=== PATIENT | male | born 1955 | race Caucasian/White ===

== ENCOUNTER 2020-07-23 08:55 | Observation (INO) | payer MEDICARE ==
[2020-07-23 09:31] LABS: #Eosinphils 0.2 10x3/uL (0.0-0.5); #Monocytes 0.6 10x3/uL (0.0-1.1); #Neutrophils 4.1 10x3/uL (1.5-8.4); %Basophils 0.6 % (0.0-2.0); %Eosinophils 3.5 % (0.0-6.0); %Lymphocytes 21.4 % (18.0-47.0); %Monocytes 9.3 % (0.0-10.0); %Neutrophils 64.9 % (40.0-75.0); Hemoglobin 12.1 g/dL (13.5-17.5); Mean Corpuscular HGB CONC 32.4 g/dL (32.0-36.0); Mean Corpuscular Hemoglobin 23.5 pg (27.0-33.0); Mean Corpuscular Volume 72.6 fl (81.2-95.1); Platelet Count 212 10x3/uL (150-450); RBC Distribution Width 15.3 % (11.5-14.5); Red Blood Cell (RBC) Count 5.15 10x6/uL (4.32-5.72); White Blood Cell (WBC) Count 6.3 10x3/uL (3.5-10.5)
[2020-07-23 09:48] LABS: ALT (SGPT) 24 U/L (8-55); AST (SGOT) 22 U/L (5-34); Albumin 3.9 g/dL (3.4-4.8); Alkaline Phosphatase 57 U/L (40-110); Anion Gap 16 mmol/L (10-20); BUN (Urea Nitrogen) 33 mg/dL (8.4-25.7); Bilirubin, Total 0.5 mg/dL (0.2-1.2); Calc. Creatinine Clearance 0 mL/min (70-130); Calcium 9.1 mg/dL (7.8-10.44); Carbon Dioxide 22 mmol/L (23-31); Chloride 101 mmol/L (98-107); Globulin 2.6 g/dL (2.4-3.5); Glucose 147 mg/dL (80-115); Potassium 3.8 mmol/L (3.5-5.1); Protein, Total 6.5 g/dL (5.8-8.1); Sodium 135 mmol/L (136-145)
[2020-07-23] MEDS ORDERED: Aspirin Chewable 81 MG TAB ONE (09:52)
[2020-07-23] MEDS ORDERED: Bisacodyl 10 MG SUPP PR PRN (10:21)
[2020-07-23] MEDS ORDERED: Guaifenesin DM 100-10/5 ML UDCUP PO PRN (10:21)
[2020-07-23] MEDS ORDERED: Dextrose 50% Abboject 50 ML SYRINGE SLOW IVP PRN (10:21)
[2020-07-23] MEDS ORDERED: Calcium Carbonate 500 MG ChewTAB PO PRN (10:21)
[2020-07-23] MEDS ORDERED: hydrALAZINE 20 MG/ML VIAL SLOW IVP PRN (10:21)
[2020-07-23] MEDS ORDERED: Sodium Chloride 0.65% Nasal 44 ML BOT EA NARE PRN (10:21)
[2020-07-23] MEDS ORDERED: Ondansetron ODT 4 MG TAB PO PRN (10:21)
[2020-07-23] MEDS ORDERED: HYDROcodone/Acetaminophen 5/325 mg Tablet PO PRN (10:21)
[2020-07-23] MEDS ORDERED: Senokot S 8.6-50 MG TAB PO PRN (10:21)
[2020-07-23] MEDS ORDERED: Dextrose 5% in Water 1,000 ML IV PRN (10:21)
[2020-07-23] MEDS ORDERED: Ondansetron PF 4 MG/2 ML Vial IVP PRN (10:21)
[2020-07-23] MEDS ORDERED: Loratadine 10 MG TAB PO PRN (10:21)
[2020-07-23] MEDS ORDERED: Cepastat Lozenges 1 LOZ PO PRN (10:21)
[2020-07-23] MEDS ORDERED: Loperamide HCl 2 MG CAP PO PRN (10:21)
[2020-07-23] MEDS ORDERED: Zolpidem Tartrate 5 MG TAB PO PRN (10:21)
[2020-07-23] MEDS ORDERED: Nitroglycerin 0.4 MG TAB (25 Tab Bottle) SL PRN (10:21)
[2020-07-23] MEDS ORDERED: Acetaminophen 325 MG TAB PO PRN (10:21)
[2020-07-23] MEDS ORDERED: HumaLOG 300 UNITS/3 ML VIAL SC PRN ×2 (10:25)
[2020-07-23 11:27] VITALS: BMI 39.0
[2020-07-23] MEDS ORDERED: Hydrocerin (Eucerin) Cream 120 gm Jar TOP PRN (11:29)
[2020-07-23 12:36] LABS: Troponin I 0.017 ng/mL (< 0.028)
[2020-07-23 15:49] LABS: Troponin I 0.018 ng/mL (< 0.028)
[2020-07-23] MEDS ORDERED: Lorazepam 0.5 MG TAB PO PRN (17:31)
[2020-07-23] MEDS ORDERED: HumaLOG 300 UNITS/3 ML VIAL SC SCH (18:00)
[2020-07-23] MEDS: TICAGRELOR 90 MG TABLET PO SCH (20:40)
[2020-07-23] MEDS: Carvedilol 25 MG TAB PO SCH (20:40)
[2020-07-23] MEDS: DULoxetine 30 MG CAP PO SCH (20:40)
[2020-07-23] MEDS ORDERED: Ubidecarenone 50 MG CAP PO SCH (21:00)
[2020-07-23] MEDS ORDERED: Aripiprazole 10 MG TAB PO SCH (21:00)
[2020-07-23] MEDS ORDERED: Atorvastatin Calcium 40 MG TAB PO SCH (21:00)
[2020-07-24 05:47] LABS: Anion Gap 15 mmol/L (10-20); BUN (Urea Nitrogen) 37 mg/dL (8.4-25.7); Calc. Creatinine Clearance 81 mL/min (70-130); Calcium 8.8 mg/dL (7.8-10.44); Carbon Dioxide 21 mmol/L (23-31); Cardiac Risk 3.9 (Less than 4.5); Chloride 103 mmol/L (98-107); Cholesterol 122 mg/dl (< 200 Desired); Glucose 243 mg/dL (80-115); HDL Cholesterol 31 mg/dL (>60 Neg Risk); LDL Cholesterol, Calculated 64 mg/dL; Potassium 3.8 mmol/L (3.5-5.1); Sodium 135 mmol/L (136-145); Triglycerides 134 mg/dL (Less than 150)
[2020-07-24 05:50] LABS: #Eosinphils 0.2 10x3/uL (0.0-0.5); #Monocytes 0.7 10x3/uL (0.0-1.1); #Neutrophils 4.4 10x3/uL (1.5-8.4); %Basophils 0.6 % (0.0-2.0); %Eosinophils 2.9 % (0.0-6.0); %Lymphocytes 21.4 % (18.0-47.0); %Monocytes 10.6 % (0.0-10.0); %Neutrophils 64.2 % (40.0-75.0); Hemoglobin 11.2 g/dL (13.5-17.5); Mean Corpuscular HGB CONC 31.8 g/dL (32.0-36.0); Mean Corpuscular Hemoglobin 23.8 pg (27.0-33.0); Mean Corpuscular Volume 74.7 fl (81.2-95.1); Mean Platelet Volume 10.3 fl (7.4-10.4); Platelet Count 208 10x3/uL (150-450); RBC Distribution Width 15.2 % (11.5-14.5); Red Blood Cell (RBC) Count 4.71 10x6/uL (4.32-5.72); White Blood Cell (WBC) Count 6.9 10x3/uL (3.5-10.5)
[2020-07-24] MEDS: TICAGRELOR 90 MG TABLET PO SCH (07:52)
[2020-07-24] MEDS: DULoxetine 30 MG CAP PO SCH (07:52)
[2020-07-24] MEDS: Carvedilol 25 MG TAB PO SCH (07:52)
[2020-07-24] MEDS ORDERED: Calcium Carbonate 600 MG TAB PO SCH (08:00)
[2020-07-24 08:58] LABS: Hemoglobin A1c 8.3 % (4.0-6.0)
[2020-07-24] MEDS ORDERED: Ascorbic Acid 500 mg Chewable Tablet PO SCH (09:00)
[2020-07-24] MEDS ORDERED: Empagliflozin 25 MG TAB PO SCH (09:00)
[2020-07-24] MEDS ORDERED: Aspirin Chewable 81 MG TAB PO SCH (09:00)
[2020-07-24] MEDS ORDERED: Fenofibrate Nanocrystallized 145 MG TAB PO SCH (09:00)
[2020-07-24] MEDS ORDERED: Enoxaparin Sodium 40 MG/0.4 ML SYRINGE SC SCH (09:00)
[2020-07-24] MEDS ORDERED: Cholecalciferol (Vitamin D3) 400 UNITS TAB PO SCH (10:15)
[2020-07-24] MEDS ORDERED: Ferrous Sulfate 325 MG TAB PO SCH (10:30)
[2020-07-24 16:38] VITALS: BP 139/74; TEMP 97.1
[2020-07-24 20:53] LABS: SARS-CoV-2 PCR by NAA Not Detected (NotDetected)
[2020-07-25] MEDS ORDERED: Ferrous Sulfate 325 MG TAB PO SCH (08:00)
[2020-07-25] MEDS ORDERED: Cholecalciferol (Vitamin D3) 400 UNITS TAB PO SCH (09:00)
== END 2020-07-24 17:29 | disposition home or self-care (01) ==
LOC: CSHERS 08:55 → CSHTELE 11:07
PROVIDERS: ADMIT Internal Medicine; ATTEND Internal Medicine
DX: R07.9 Chest pain, unspecified (principal); R55 Syncope and collapse; F41.9 Anxiety disorder, unspecified; F32.9 Major depressive disorder, single episode, unspecified; E11.22 Type 2 diabetes mellitus with diabetic chronic kidney disease; I12.9 Hypertensive chronic kidney disease with stage 1 through stage 4 chronic kidney disease, or unspecified chronic kidney disease; N18.31 Chronic kidney disease, stage 3a; E78.5 Hyperlipidemia, unspecified; G47.33 Obstructive sleep apnea (adult) (pediatric); K21.9 Gastro-esophageal reflux disease without esophagitis; E66.9 Obesity, unspecified; Z79.899 Other long term (current) drug therapy; Z79.82 Long term (current) use of aspirin; Z79.4 Long term (current) use of insulin; Z95.5 Presence of coronary angioplasty implant and graft; Z98.84 Bariatric surgery status; Z86.16 Personal history of COVID-19; Z20.822 Contact with and (suspected) exposure to COVID-19
CPT/HCPCS: 71045; 80048; 80053; 80061; 82962 ×2; 83036; 84484 ×2; 85025 ×2; 93005; 94760 ×2; 99285; U0003; U0005; 36415; 36416; 87635; 96372; G0378; J1650

== ENCOUNTER 2021-09-03 08:57 | Observation (INO) | payer MEDICARE ==
[2021-09-03] MEDS ORDERED: Aspirin Chewable 81 MG TAB ONE (09:25)
[2021-09-03 10:07] LABS: #Basophils 0.1 10x3/uL (0.0-0.2); #Eosinphils 0.3 10x3/uL (0.0-0.5); #Monocytes 0.5 10x3/uL (0.0-1.1); #Neutrophils 4.1 10x3/uL (1.5-8.4); %Basophils 1.1 % (0.0-2.0); %Eosinophils 4.7 % (0.0-6.0); %Lymphocytes 24.8 % (18.0-47.0); %Monocytes 7.8 % (0.0-10.0); %Neutrophils 61.3 % (40.0-75.0); Mean Corpuscular HGB CONC 32.3 g/dL (32.0-36.0); Mean Corpuscular Volume 71.3 fl (81.2-95.1); Platelet Count 241 10x3/uL (150-450); RBC Distribution Width 15.9 % (11.5-14.5); Red Blood Cell (RBC) Count 4.78 10x6/uL (4.32-5.72); White Blood Cell (WBC) Count 6.7 10x3/uL (3.5-10.5)
[2021-09-03 10:29] LABS: ALT (SGPT) 20 U/L (8-55); AST (SGOT) 20 U/L (5-34); Albumin 3.6 g/dL (3.4-4.8); Alkaline Phosphatase 44 U/L (40-110); Anion Gap 16 mmol/L (10-20); BUN (Urea Nitrogen) 36 mg/dL (8.4-25.7); Bilirubin, Total 0.4 mg/dL (0.2-1.2); CK (CPK) 136 U/L (30-200); Calc. Creatinine Clearance 0 mL/min (70-130); Calcium 8.9 mg/dL (7.8-10.44); Carbon Dioxide 25 mmol/L (23-31); Chloride 102 mmol/L (98-107); Globulin 2.4 g/dL (2.4-3.5); Glucose 110 mg/dL (80-115); Lipase 62 U/L (8-78); Potassium 3.9 mmol/L (3.5-5.1); Sodium 139 mmol/L (136-145)
[2021-09-03 12:06] VITALS: BMI 39.0
[2021-09-03] MEDS ORDERED: Acetaminophen 325 MG TAB PO PRN (12:06)
[2021-09-03 12:38] LABS: Troponin I 0.016 ng/mL (< 0.028)
[2021-09-03] MEDS ORDERED: HumaLOG 300 UNITS/3 ML VIAL SC PRN ×2 (12:59→20:45)
[2021-09-03] MEDS ORDERED: Dextrose 5% in Water 1,000 ML IV PRN (12:59)
[2021-09-03] MEDS ORDERED: Dextrose 50% Abboject 50 ML SYRINGE SLOW IVP PRN (12:59)
[2021-09-03 15:50] LABS: Troponin I 0.014 ng/mL (< 0.028)
[2021-09-03] MEDS ORDERED: TADALAFIL 20 MG PO PRN (20:36)
[2021-09-03] MEDS ORDERED: Atorvastatin Calcium 40 MG TAB PO SCH (21:00)
[2021-09-03] MEDS ORDERED: Ubidecarenone 50 MG CAP PO SCH (21:00)
[2021-09-03] MEDS ORDERED: Aripiprazole 10 MG TAB PO SCH (21:00)
[2021-09-03] MEDS ORDERED: Terazosin HCl 5 MG CAP PO SCH (21:00)
[2021-09-03] MEDS ORDERED: Melatonin 3 MG TAB PO PRN (21:03)
[2021-09-03] MEDS: DULoxetine 30 MG CAP PO SCH (21:31)
[2021-09-03] MEDS: TICAGRELOR 90 MG TABLET PO SCH (21:32)
[2021-09-03] MEDS: Vit A,C & E/Lutein/Minerals Tablet PO SCH (21:36)
[2021-09-04 05:45] LABS: #Basophils 0.1 10x3/uL (0.0-0.2); #Eosinphils 0.4 10x3/uL (0.0-0.5); #Monocytes 0.6 10x3/uL (0.0-1.1); #Neutrophils 3.8 10x3/uL (1.5-8.4); %Basophils 1.1 % (0.0-2.0); %Eosinophils 4.8 % (0.0-6.0); %Lymphocytes 33.7 % (18.0-47.0); %Monocytes 8.6 % (0.0-10.0); %Neutrophils 51.7 % (40.0-75.0); Hemoglobin 11.3 g/dL (13.5-17.5); Mean Corpuscular HGB CONC 31.3 g/dL (32.0-36.0); Mean Corpuscular Hemoglobin 22.3 pg (27.0-33.0); Mean Corpuscular Volume 71.3 fl (81.2-95.1); Mean Platelet Volume 9.8 fl (7.4-10.4); Platelet Count 263 10x3/uL (150-450); RBC Distribution Width 16.2 % (11.5-14.5); Red Blood Cell (RBC) Count 5.06 10x6/uL (4.32-5.72); White Blood Cell (WBC) Count 7.3 10x3/uL (3.5-10.5)
[2021-09-04 06:02] LABS: Anion Gap 12 mmol/L (10-20); BUN (Urea Nitrogen) 32 mg/dL (8.4-25.7); Calc. Creatinine Clearance 79 mL/min (70-130); Calcium 8.8 mg/dL (7.8-10.44); Carbon Dioxide 28 mmol/L (23-31); Cardiac Risk 3.7 (Less than 4.5); Chloride 103 mmol/L (98-107); Cholesterol 146 mg/dl (< 200 Desired); HDL Cholesterol 40 mg/dL (>60 Neg Risk); LDL Cholesterol, Calculated 92 mg/dL; Potassium 3.4 mmol/L (3.5-5.1); Sodium 140 mmol/L (136-145); Triglycerides 70 mg/dL (Less than 150)
[2021-09-04 06:07] LABS: Glucose 57 mg/dL (80-115)
[2021-09-04] MEDS ORDERED: Carvedilol 25 MG TAB PO SCH (08:00)
[2021-09-04] MEDS ORDERED: metFORMIN 500 MG TAB PO SCH (08:00)
[2021-09-04] MEDS: DULoxetine 30 MG CAP PO SCH (08:14)
[2021-09-04] MEDS: TICAGRELOR 90 MG TABLET PO SCH (08:16)
[2021-09-04] MEDS: Vit A,C & E/Lutein/Minerals Tablet PO SCH (08:16)
[2021-09-04] MEDS ORDERED: Aspirin 81 mg Enteric Coated Tablet PO SCH (09:00)
[2021-09-04] MEDS ORDERED: Aspirin Chewable 81 MG TAB PO SCH (09:00)
[2021-09-04] MEDS ORDERED: Fenofibrate Nanocrystallized 145 MG TAB PO SCH (09:00)
[2021-09-04] MEDS ORDERED: Ascorbic Acid 500 mg Chewable Tablet PO SCH (09:00)
[2021-09-04] MEDS ORDERED: Amlodipine 10 MG TAB PO SCH (09:00)
[2021-09-04] MEDS ORDERED: Empagliflozin 25 MG TAB PO SCH (09:00)
[2021-09-04] MEDS ORDERED: Hydrochlorothiazide 25 MG TAB PO SCH (09:00)
[2021-09-04] MEDS ORDERED: Losartan Potassium 50 MG TAB PO SCH (09:00)
[2021-09-04 11:07] LABS: Magnesium 2.1 mg/dL (1.6-2.6)
[2021-09-04 12:05] VITALS: BP 144/89; TEMP 97.2
[2021-09-04] MEDS: Potassium Chloride 20 MEQ TAB PO SCH ×2 (12:06→12:45)
[2021-09-04] MEDS ORDERED: Potassium Chloride 20 MEQ TAB PO SCH (13:00)
[2021-09-04 17:03] LABS: Hemoglobin A1c 7.2 % (4.0-6.0)
[2021-09-04] MEDS ORDERED: Flecainide 50 MG TAB PO SCH (21:00)
[2021-09-04] MEDS ORDERED: Atorvastatin Calcium 40 MG TAB PO SCH (21:00)
[2021-09-05] MEDS ORDERED: Clopidogrel Bisulfate 75 MG TAB PO SCH (09:00)
[2021-09-07] MEDS ORDERED: Ergocalciferol 1.25 MG(50,000 UNITS) CAP PO SCH (21:00)
== END 2021-09-04 16:30 | disposition home or self-care (01) ==
LOC: CSHERS 08:57 → CSHTELE 11:44 → INTOOBSV 11:55
PROVIDERS: ADMIT Hospitalist; ATTEND Hospitalist
DX: R07.89 Other chest pain (principal); I25.118 Atherosclerotic heart disease of native coronary artery with other forms of angina pectoris; E11.65 Type 2 diabetes mellitus with hyperglycemia; I12.9 Hypertensive chronic kidney disease with stage 1 through stage 4 chronic kidney disease, or unspecified chronic kidney disease; E11.22 Type 2 diabetes mellitus with diabetic chronic kidney disease; N18.9 Chronic kidney disease, unspecified; K21.9 Gastro-esophageal reflux disease without esophagitis; G47.33 Obstructive sleep apnea (adult) (pediatric); E78.2 Mixed hyperlipidemia; N40.0 Benign prostatic hyperplasia without lower urinary tract symptoms; I07.1 Rheumatic tricuspid insufficiency; Z86.16 Personal history of COVID-19; Z79.4 Long term (current) use of insulin; Z79.82 Long term (current) use of aspirin; Z79.84 Long term (current) use of oral hypoglycemic drugs; Z79.899 Other long term (current) drug therapy; Z88.2 Allergy status to sulfonamides; Z95.5 Presence of coronary angioplasty implant and graft; Z96.41 Presence of insulin pump (external) (internal)
CPT/HCPCS: 36415; 36416; 71045; 80048; 80053; 80061; 82550; 83036; 83690; 83735; 84484; 85025; 93005; 93306; G0378

== ENCOUNTER 2021-12-07 09:49 | Outpatient (CLI) | payer MEDICARE | END 2021-12-07 09:50 | disposition home or self-care (01) | LOC: CSHULT 09:49 | PROVIDERS: ATTEND Family Medicine | DX: R10.13 Epigastric pain (principal); C67.9 Malignant neoplasm of bladder, unspecified; K82.9 Disease of gallbladder, unspecified; G25.2 Other specified forms of tremor | CPT/HCPCS: 36415; 70551; 76700; 76856; 80053; 80061; 82043; 83036; 83525; 83540; 83550; 84681 ==

== ENCOUNTER 2022-04-14 18:41 | Inpatient (IN) | payer MEDICARE ==
[2022-04-14 20:10] LABS: #Basophils 0.1 10x3/uL (0.0-0.2); #Eosinphils 0.3 10x3/uL (0.0-0.5); #Monocytes 0.6 10x3/uL (0.0-1.1); #Neutrophils 4.7 10x3/uL (1.5-8.4); %Basophils 0.7 % (0.0-2.0); %Eosinophils 4.2 % (0.0-6.0); %Monocytes 8.3 % (0.0-10.0); %Neutrophils 68.7 % (40.0-75.0); Hemoglobin 9.7 g/dL (13.5-17.5); Mean Corpuscular HGB CONC 33.7 g/dL (32.0-36.0); Mean Corpuscular Hemoglobin 25.9 pg (27.0-33.0); Mean Corpuscular Volume 76.8 fl (81.2-95.1); Mean Platelet Volume 9.4 fl (7.4-10.4); Platelet Count 233 10x3/uL (150-450); RBC Distribution Width 14.1 % (11.5-14.5); Red Blood Cell (RBC) Count 3.75 10x6/uL (4.32-5.72); White Blood Cell (WBC) Count 6.9 10x3/uL (3.5-10.5)
[2022-04-14 20:16] LABS: ALT (SGPT) 44 U/L (8-55); AST (SGOT) 36 U/L (5-34); Albumin 2.9 g/dL (3.4-4.8); Alkaline Phosphatase 40 U/L (40-110); Anion Gap 11 mmol/L (10-20); BUN (Urea Nitrogen) 41 mg/dL (8.4-25.7); Bilirubin, Total 0.4 mg/dL (0.2-1.2); Calc. Creatinine Clearance 0 mL/min (70-130); Calcium 8.1 mg/dL (7.8-10.44); Carbon Dioxide 25 mmol/L (23-31); Chloride 103 mmol/L (98-107); Estimated GFR 27; Globulin 2.2 g/dL (2.4-3.5); Glucose 211 mg/dL (80-115); Potassium 3.5 mmol/L (3.5-5.1); Protein, Total 5.1 g/dL (5.8-8.1); Sodium 135 mmol/L (136-145)
[2022-04-14] MEDS ORDERED: Aspirin 325 MG TAB ONE (21:31)
[2022-04-14] MEDS ORDERED: Furosemide 100 MG/10 ML VIAL ONE (21:31)
[2022-04-14] MEDS ORDERED: Senokot S 8.6-50 MG TAB PO PRN (22:03)
[2022-04-14] MEDS ORDERED: Acetaminophen 325 MG TAB PO PRN (22:03)
[2022-04-14] MEDS ORDERED: HumaLOG 300 UNITS/3 ML VIAL SC PRN (22:03)
[2022-04-14] MEDS ORDERED: Ondansetron PF 4 MG/2 ML Vial IVP PRN (22:03)
[2022-04-14] MEDS ORDERED: Guaifenesin DM 100-10/5 ML UDCUP PO PRN (22:03)
[2022-04-14] MEDS ORDERED: Dextrose 50% Abboject 50 ML SYRINGE SLOW IVP PRN (22:03)
[2022-04-14] MEDS ORDERED: Calcium Carbonate 500 MG ChewTAB PO PRN (22:03)
[2022-04-14] MEDS ORDERED: Dextrose 5% in Water 1,000 ML IV PRN (22:03)
[2022-04-14] MEDS ORDERED: Nitroglycerin 2% Ointment 1 INCH/1 GM Packet ONE (22:18)
[2022-04-14] MEDS ORDERED: Melatonin 3 MG TAB PO PRN (23:44)
[2022-04-14] MEDS ORDERED: Potassium Chloride 20 MEQ TAB PO SCH (23:59)
[2022-04-14] MEDS ORDERED: Albumin 25% 25 GM/100 ML BOT IVPB SCH (23:59)
[2022-04-15 02:13] VITALS: BMI 39.7
[2022-04-15 04:52] LABS: Anion Gap 16 mmol/L (10-20); BUN (Urea Nitrogen) 40 mg/dL (8.4-25.7); Calc. Creatinine Clearance 50 mL/min (70-130); Calcium 8.4 mg/dL (7.8-10.44); Carbon Dioxide 24 mmol/L (23-31); Chloride 105 mmol/L (98-107); Estimated GFR 26; Glucose 126 mg/dL (80-115); Potassium 3.6 mmol/L (3.5-5.1); Sodium 141 mmol/L (136-145)
[2022-04-15 05:19] LABS: CKMB 3.4 ng/mL (0-6.6)
[2022-04-15] MEDS ORDERED: [UNRECOGNIZED DRUG - OTHER] PO SCH (09:00)
[2022-04-15] MEDS ORDERED: OMEGA PO SCH (09:00)
[2022-04-15] MEDS ORDERED: [UNRECOGNIZED DRUG - OTHER] PO SCH (09:00)
[2022-04-15] MEDS ORDERED: KRILL PO SCH (09:00)
[2022-04-15] MEDS ORDERED: GLUCOS SUL PO SCH (09:00)
[2022-04-15] MEDS ORDERED: LIPIDS PO SCH (09:00)
[2022-04-15] MEDS ORDERED: DHA PO SCH (09:00)
[2022-04-15] MEDS ORDERED: Losartan Potassium 50 MG TAB PO SCH (09:00)
[2022-04-15] MEDS ORDERED: EPA PO SCH (09:00)
[2022-04-15 09:05] LABS: CKMB 3.4 ng/mL (0-6.6)
[2022-04-15] MEDS: Aspirin 81 mg Enteric Coated Tablet PO SCH (09:29)
[2022-04-15] MEDS: Clopidogrel Bisulfate 75 MG TAB PO SCH (09:29)
[2022-04-15] MEDS: Finasteride 5 MG TAB PO SCH (09:29)
[2022-04-15] MEDS: Furosemide 40 MG/4 ML VIAL SLOW IVP SCH (09:30)
[2022-04-15] MEDS: Vit A,C & E/Lutein/Minerals Tablet PO SCH ×2 (09:30→22:07)
[2022-04-15] MEDS: DULoxetine 30 MG CAP PO SCH ×2 (09:30→22:09)
[2022-04-15] MEDS: Carvedilol 25 MG TAB PO SCH ×2 (09:30→16:44)
[2022-04-15] MEDS: Losartan Potassium 50 MG TAB PO SCH (09:30)
[2022-04-15] MEDS: cloNIDine 0.1 MG TAB PO SCH ×2 (09:30→22:08)
[2022-04-15] MEDS: Fenofibrate Nanocrystallized 145 MG TAB PO SCH (09:31)
[2022-04-15] MEDS: Empagliflozin 25 MG TAB PO SCH (09:34)
[2022-04-15] MEDS: Albumin 25% 25 GM/100 ML BOT IVPB SCH ×2 (12:08→16:44)
[2022-04-15] MEDS: Ferrous Sulfate 325 MG TAB PO SCH (16:44)
[2022-04-15] MEDS ORDERED: Aripiprazole 10 MG TAB PO SCH (21:00)
[2022-04-15] MEDS ORDERED: Ubidecarenone 50 MG CAP PO SCH (21:00)
[2022-04-15] MEDS ORDERED: Atorvastatin Calcium 40 MG TAB PO SCH (21:00)
[2022-04-15] MEDS: CHROMIUM PICOLINATE 200 MCG PO SCH (23:58)
[2022-04-16] MEDS: Albumin 25% 25 GM/100 ML BOT IVPB SCH ×2 (00:17→06:11)
[2022-04-16 05:57] LABS: #Basophils 0.1 10x3/uL (0.0-0.2); #Eosinphils 0.3 10x3/uL (0.0-0.5); #Monocytes 0.7 10x3/uL (0.0-1.1); #Neutrophils 3.1 10x3/uL (1.5-8.4); %Basophils 0.9 % (0.0-2.0); %Eosinophils 4.8 % (0.0-6.0); %Lymphocytes 26.7 % (18.0-47.0); %Neutrophils 54.4 % (40.0-75.0); Hemoglobin 9.5 g/dL (13.5-17.5); Mean Corpuscular HGB CONC 33.2 g/dL (32.0-36.0); Mean Corpuscular Volume 78.4 fl (81.2-95.1); Mean Platelet Volume 9.8 fl (7.4-10.4); Platelet Count 212 10x3/uL (150-450); RBC Distribution Width 14.2 % (11.5-14.5); Red Blood Cell (RBC) Count 3.65 10x6/uL (4.32-5.72); White Blood Cell (WBC) Count 5.6 10x3/uL (3.5-10.5)
[2022-04-16 06:16] LABS: Anion Gap 12 mmol/L (10-20); BUN (Urea Nitrogen) 40 mg/dL (8.4-25.7); Calc. Creatinine Clearance 50 mL/min (70-130); Calcium 8.6 mg/dL (7.8-10.44); Carbon Dioxide 28 mmol/L (23-31); Chloride 102 mmol/L (98-107); Estimated GFR 26; Glucose 112 mg/dL (80-115); Potassium 3.5 mmol/L (3.5-5.1); Sodium 138 mmol/L (136-145)
[2022-04-16] MEDS: Fenofibrate Nanocrystallized 145 MG TAB PO SCH (08:41)
[2022-04-16] MEDS: Carvedilol 25 MG TAB PO SCH ×2 (08:41→16:56)
[2022-04-16] MEDS: cloNIDine 0.1 MG TAB PO SCH (08:41)
[2022-04-16] MEDS: Vit A,C & E/Lutein/Minerals Tablet PO SCH (08:41)
[2022-04-16] MEDS: Aspirin 81 mg Enteric Coated Tablet PO SCH (08:41)
[2022-04-16] MEDS: Ferrous Sulfate 325 MG TAB PO SCH ×2 (08:42→16:56)
[2022-04-16] MEDS: Finasteride 5 MG TAB PO SCH (08:43)
[2022-04-16] MEDS: Furosemide 40 MG/4 ML VIAL SLOW IVP SCH (08:43)
[2022-04-16] MEDS: Clopidogrel Bisulfate 75 MG TAB PO SCH (08:43)
[2022-04-16] MEDS: Losartan Potassium 50 MG TAB PO SCH (08:43)
[2022-04-16] MEDS: Empagliflozin 25 MG TAB PO SCH (08:47)
[2022-04-16] MEDS: DULoxetine 30 MG CAP PO SCH (08:47)
[2022-04-16 11:09] LABS: SARS-CoV-2 NAA Rapid Test Not Detected (NotDetected)
[2022-04-16] MEDS ORDERED: Potassium Chloride 20 MEQ TAB PO SCH (11:45)
[2022-04-16 16:56] VITALS: BP 150/64; TEMP 98.3
== END 2022-04-16 19:16 | disposition home or self-care (01) | DRG 682 ==
LOC: CSHERS 18:41 → CSHTELE 23:36
PROVIDERS: ADMIT Student in an Organized Health Care Education/Training Program; ATTEND Internal Medicine
DX: N17.9 Acute kidney failure, unspecified (principal); I21.A1 Myocardial infarction type 2; E11.22 Type 2 diabetes mellitus with diabetic chronic kidney disease; Z20.822 Contact with and (suspected) exposure to COVID-19; G47.33 Obstructive sleep apnea (adult) (pediatric); E78.5 Hyperlipidemia, unspecified; K21.9 Gastro-esophageal reflux disease without esophagitis; E66.01 Morbid (severe) obesity due to excess calories; D63.1 Anemia in chronic kidney disease; F41.9 Anxiety disorder, unspecified; F32.A Depression, unspecified; N40.0 Benign prostatic hyperplasia without lower urinary tract symptoms; I48.0 Paroxysmal atrial fibrillation; N18.4 Chronic kidney disease, stage 4 (severe); I10 Essential (primary) hypertension; Z99.89 Dependence on other enabling machines and devices; Z79.82 Long term (current) use of aspirin; Z79.899 Other long term (current) drug therapy; Z79.4 Long term (current) use of insulin; Z88.2 Allergy status to sulfonamides; Z79.02 Long term (current) use of antithrombotics/antiplatelets; Z95.5 Presence of coronary angioplasty implant and graft; Z98.84 Bariatric surgery status; Z85.51 Personal history of malignant neoplasm of bladder; Z90.89 Acquired absence of other organs; Z89.421 Acquired absence of other right toe(s); Z82.49 Family history of ischemic heart disease and other diseases of the circulatory system; Z68.39 Body mass index [BMI] 39.0-39.9, adult; N30.90 Cystitis, unspecified without hematuria; I25.118 Atherosclerotic heart disease of native coronary artery with other forms of angina pectoris
CPT/HCPCS: 36415; 36416; 71045; 80048; 80053; 81001; 82553; 83690; 83880; 84443; 84484; 85025; 85379; 93005; 93306; 96374; J1650; J1940; P9047

== ENCOUNTER 2022-05-09 20:25 | Inpatient (IN) | payer MEDICARE ==
[2022-05-09 21:07] LABS: #Eosinphils 0.3 10x3/uL (0.0-0.5); #Monocytes 0.6 10x3/uL (0.0-1.1); #Neutrophils 3.8 10x3/uL (1.5-8.4); %Basophils 0.7 % (0.0-2.0); %Eosinophils 4.2 % (0.0-6.0); %Lymphocytes 22.5 % (18.0-47.0); %Monocytes 9.7 % (0.0-10.0); %Neutrophils 62.6 % (40.0-75.0); Hemoglobin 10.2 g/dL (13.5-17.5); Mean Corpuscular Hemoglobin 25.8 pg (27.0-33.0); Mean Platelet Volume 10.2 fl (7.4-10.4); Platelet Count 223 10x3/uL (150-450); RBC Distribution Width 13.9 % (11.5-14.5); Red Blood Cell (RBC) Count 3.96 10x6/uL (4.32-5.72)
[2022-05-09 21:16] LABS: ALT (SGPT) 58 U/L (8-55); AST (SGOT) 46 U/L (5-34); Alkaline Phosphatase 39 U/L (40-110); Anion Gap 11 mmol/L (10-20); BUN (Urea Nitrogen) 43 mg/dL (8.4-25.7); Bilirubin, Total 0.4 mg/dL (0.2-1.2); Calc. Creatinine Clearance 0 mL/min (70-130); Calcium 8.1 mg/dL (7.8-10.44); Carbon Dioxide 26 mmol/L (23-31); Chloride 104 mmol/L (98-107); Estimated GFR 27; Globulin 2.3 g/dL (2.4-3.5); Glucose 145 mg/dL (80-115); Potassium 3.5 mmol/L (3.5-5.1); Protein, Total 5.3 g/dL (5.8-8.1); Sodium 137 mmol/L (136-145)
[2022-05-09 21:24] LABS: SARS-CoV-2 NAA Rapid Test Not Detected (NotDetected)
[2022-05-09 21:39] LABS: CKMB 3.1 ng/mL (0-6.6)
[2022-05-09 21:57] LABS: Bilirubin Neg (Negative); Blood, Urine 10 (Negative); Glucose, Urine (Dipstick) >=1000 mg/dL (Negative); Ketone, Urine Negative (Negative); Leukocyte Negative (Negative); Nitrite Negative (Negative); Protein, Urine (Dipstick) 100 mg/dl (Neg-Trace); Urobilinogen Normal mg/dL (Less than 2)
[2022-05-09 22:01] LABS: Clarity Clear (Clear)
[2022-05-09 22:10] LABS: Bacteria/HPF Rare-Few HPF (None Seen); RBC/HPF 0-3 HPF (0-3); Squamous Epithelial 0-3 HPF (0-3); WBC/HPF 0-3 HPF (0-3)
[2022-05-09] MEDS ORDERED: Senokot S 8.6-50 MG TAB PO PRN (22:26)
[2022-05-09] MEDS ORDERED: Calcium Carbonate 500 MG ChewTAB PO PRN (22:26)
[2022-05-09] MEDS ORDERED: Ondansetron PF 4 MG/2 ML Vial IVP PRN (22:26)
[2022-05-09 22:59] LABS: Actual Bicarbonate (HCO3v) 26 mEq/L (22-28); Base Excess 1.1 mEq/L (-2 - +2); Calcium, Ionized (venous) 1.09 mmol/L (1.16-1.32); Chloride (VBG) 103 mmol/L (98-106); Critical Notified By: CP.PH; Hemoglobin (Hb) 10.8 g/dL (12.6-17.4); Potassium (VBG) 3.43 mmol/L (3.70-5.30); Puncture Site Other Site; RapidComm Collect By LAB.YY; Sodium 135.2 mmol/L (133-146); pH (venous) 7.41 (7.32-7.43)
[2022-05-10 04:14] LABS: CKMB 3.1 ng/mL (0-6.6)
[2022-05-10] MEDS ORDERED: Clopidogrel Bisulfate 75 MG TAB ONE (07:19)
[2022-05-10] MEDS ORDERED: Aspirin Chewable 81 MG TAB ONE (07:19)
[2022-05-10] MEDS ORDERED: cloNIDine 0.1 MG TAB ONE (07:19)
[2022-05-10] MEDS ORDERED: Acetaminophen 325 MG TAB ONE (07:19)
[2022-05-10] MEDS ORDERED: Losartan Potassium 50 MG TAB ONE (07:22)
[2022-05-10] MEDS ORDERED: Carvedilol 25 MG TAB ONE (07:22)
[2022-05-10] MEDS: DULoxetine 30 MG CAP PO SCH ×2 (08:02→20:44)
[2022-05-10] MEDS: Empagliflozin 25 MG TAB PO SCH (08:02)
[2022-05-10] MEDS: Aspirin 81 mg Enteric Coated Tablet PO SCH (08:02)
[2022-05-10] MEDS: Finasteride 5 MG TAB PO SCH (08:02)
[2022-05-10] MEDS: Fenofibrate Nanocrystallized 145 MG TAB PO SCH (08:02)
[2022-05-10] MEDS: Furosemide 20 MG TAB PO SCH (08:02)
[2022-05-10] MEDS: Carvedilol 25 MG TAB PO SCH ×2 (08:02→16:19)
[2022-05-10] MEDS: Clopidogrel Bisulfate 75 MG TAB PO SCH (08:02)
[2022-05-10] MEDS: cloNIDine 0.1 MG TAB PO SCH ×2 (08:02→20:43)
[2022-05-10] MEDS: Acetaminophen 325 MG TAB PO PRN ×2 (08:03→21:23)
[2022-05-10] MEDS: Losartan Potassium 50 MG TAB PO SCH (08:03)
[2022-05-10] MEDS: Vit A,C & E/Lutein/Minerals Tablet PO SCH ×2 (08:03→20:44)
[2022-05-10 08:50] LABS: CKMB 2.7 ng/mL (0-6.6)
[2022-05-10] MEDS ORDERED: GLUCOS SUL PO SCH (09:00)
[2022-05-10] MEDS ORDERED: CHROMIUM PICOLINATE 200 MCG PO SCH (09:00)
[2022-05-10] MEDS ORDERED: [UNRECOGNIZED DRUG - OTHER] PO SCH (09:00)
[2022-05-10 15:12] VITALS: BMI 38.9
[2022-05-10] MEDS: Aripiprazole 10 MG TAB PO SCH (20:43)
[2022-05-10] MEDS: Atorvastatin Calcium 40 MG TAB PO SCH (20:43)
[2022-05-10] MEDS: CO Q-10 CAPSULE 50 MG PO SCH (20:44)
[2022-05-11 08:50] LABS: #Basophils 0.1 10x3/uL (0.0-0.2); #Eosinphils 0.3 10x3/uL (0.0-0.5); #Monocytes 0.7 10x3/uL (0.0-1.1); #Neutrophils 3.6 10x3/uL (1.5-8.4); %Basophils 0.8 % (0.0-2.0); %Eosinophils 4.5 % (0.0-6.0); %Lymphocytes 28.6 % (18.0-47.0); %Monocytes 10.2 % (0.0-10.0); %Neutrophils 55.7 % (40.0-75.0); Hemoglobin 9.8 g/dL (13.5-17.5); Mean Corpuscular Hemoglobin 25.1 pg (27.0-33.0); Mean Corpuscular Volume 78.3 fl (81.2-95.1); Mean Platelet Volume 10.2 fl (7.4-10.4); Platelet Count 223 10x3/uL (150-450); RBC Distribution Width 14.3 % (11.5-14.5); Red Blood Cell (RBC) Count 3.91 10x6/uL (4.32-5.72); White Blood Cell (WBC) Count 6.4 10x3/uL (3.5-10.5)
[2022-05-11 09:07] LABS: ALT (SGPT) 52 U/L (8-55); AST (SGOT) 40 U/L (5-34); Albumin 2.9 g/dL (3.4-4.8); Alkaline Phosphatase 39 U/L (40-110); Anion Gap 10 mmol/L (10-20); BUN (Urea Nitrogen) 38 mg/dL (8.4-25.7); Bilirubin, Total 0.4 mg/dL (0.2-1.2); Calc. Creatinine Clearance 49 mL/min (70-130); Calcium 8.1 mg/dL (7.8-10.44); Carbon Dioxide 26 mmol/L (23-31); Chloride 105 mmol/L (98-107); Estimated GFR 26; Globulin 2.2 g/dL (2.4-3.5); Glucose 143 mg/dL (80-115); Magnesium 2.2 mg/dL (1.6-2.6); Phosphorus 3.6 mg/dL (2.3-4.7); Potassium 3.4 mmol/L (3.5-5.1); Protein, Total 5.1 g/dL (5.8-8.1); Sodium 138 mmol/L (136-145)
[2022-05-11] MEDS: Furosemide 20 MG TAB PO SCH (10:49)
[2022-05-11] MEDS: Aspirin 81 mg Enteric Coated Tablet PO SCH (10:50)
[2022-05-11] MEDS: DULoxetine 30 MG CAP PO SCH ×2 (10:50→20:33)
[2022-05-11] MEDS: cloNIDine 0.1 MG TAB PO SCH ×2 (10:50→20:34)
[2022-05-11] MEDS: Finasteride 5 MG TAB PO SCH (10:50)
[2022-05-11] MEDS: Empagliflozin 25 MG TAB PO SCH (10:51)
[2022-05-11] MEDS: Clopidogrel Bisulfate 75 MG TAB PO SCH (10:51)
[2022-05-11] MEDS: Carvedilol 25 MG TAB PO SCH ×2 (10:51→17:25)
[2022-05-11] MEDS: Losartan Potassium 50 MG TAB PO SCH (10:51)
[2022-05-11] MEDS: Vit A,C & E/Lutein/Minerals Tablet PO SCH ×2 (10:52→20:35)
[2022-05-11] MEDS: Fenofibrate Nanocrystallized 145 MG TAB PO SCH (10:52)
[2022-05-11] MEDS ORDERED: cloNIDine 0.1 MG TAB PO PRN (11:02)
[2022-05-11] MEDS ORDERED: Dextrose 50% Abboject 50 ML SYRINGE SLOW IVP PRN (11:34)
[2022-05-11] MEDS ORDERED: Insulin Regular 300 UNITS/3 ML VIAL SC PRN (11:34)
[2022-05-11] MEDS ORDERED: Dextrose 5% in Water 1,000 ML IV PRN (11:34)
[2022-05-11] MEDS ORDERED: Potassium Chloride 20 MEQ TAB PO SCH (12:00)
[2022-05-11] MEDS ORDERED: Amlodipine 5 MG TAB PO SCH ×2 (12:00→18:30)
[2022-05-11] MEDS: Insulin Regular 300 UNITS/3 ML VIAL SC PRN ×2 (12:28→17:25)
[2022-05-11] MEDS ORDERED: Lantus 1000 UNITS/10 ML VIAL SC SCH (18:15)
[2022-05-11] MEDS: CO Q-10 CAPSULE 50 MG PO SCH (20:31)
[2022-05-11] MEDS: Aripiprazole 10 MG TAB PO SCH (20:32)
[2022-05-11] MEDS: Atorvastatin Calcium 40 MG TAB PO SCH (20:34)
[2022-05-11] MEDS: Acetaminophen 325 MG TAB PO PRN (22:13)
[2022-05-12] MEDS: Acetaminophen 325 MG TAB PO PRN ×2 (03:26→11:42)
[2022-05-12 04:02] LABS: #Eosinphils 0.3 10x3/uL (0.0-0.5); #Monocytes 0.7 10x3/uL (0.0-1.1); #Neutrophils 3.4 10x3/uL (1.5-8.4); %Basophils 0.6 % (0.0-2.0); %Eosinophils 4.4 % (0.0-6.0); %Lymphocytes 29.5 % (18.0-47.0); %Monocytes 10.5 % (0.0-10.0); %Neutrophils 54.8 % (40.0-75.0); Mean Corpuscular HGB CONC 32.6 g/dL (32.0-36.0); Mean Corpuscular Hemoglobin 25.4 pg (27.0-33.0); Mean Corpuscular Volume 77.9 fl (81.2-95.1); Mean Platelet Volume 10.3 fl (7.4-10.4); Platelet Count 217 10x3/uL (150-450); RBC Distribution Width 14.1 % (11.5-14.5); Red Blood Cell (RBC) Count 3.94 10x6/uL (4.32-5.72); White Blood Cell (WBC) Count 6.2 10x3/uL (3.5-10.5)
[2022-05-12 04:29] LABS: Anion Gap 11 mmol/L (10-20); BUN (Urea Nitrogen) 38 mg/dL (8.4-25.7); Calc. Creatinine Clearance 49 mL/min (70-130); Calcium 8.3 mg/dL (7.8-10.44); Carbon Dioxide 27 mmol/L (23-31); Chloride 105 mmol/L (98-107); Estimated GFR 26; Glucose 181 mg/dL (80-115); Potassium 3.7 mmol/L (3.5-5.1); Sodium 139 mmol/L (136-145)
[2022-05-12] MEDS ORDERED: Amlodipine 5 MG TAB PO SCH (09:00)
[2022-05-12] MEDS ORDERED: Potassium Chloride 20 MEQ TAB PO SCH (09:00)
[2022-05-12] MEDS ORDERED: hydrALAZINE 25 MG TAB PO PRN (10:38)
[2022-05-12] MEDS: Lantus 1000 UNITS/10 ML VIAL SC SCH (11:18)
[2022-05-12] MEDS: Insulin Regular 300 UNITS/3 ML VIAL SC PRN ×2 (11:18→16:27)
[2022-05-12] MEDS: Amlodipine 10 MG TAB PO SCH (11:21)
[2022-05-12] MEDS: Losartan Potassium 50 MG TAB PO SCH (11:21)
[2022-05-12] MEDS: Empagliflozin 25 MG TAB PO SCH (11:21)
[2022-05-12] MEDS: Carvedilol 25 MG TAB PO SCH ×2 (11:22→16:26)
[2022-05-12] MEDS: Vit A,C & E/Lutein/Minerals Tablet PO SCH ×2 (11:22→20:21)
[2022-05-12] MEDS: Clopidogrel Bisulfate 75 MG TAB PO SCH (11:22)
[2022-05-12] MEDS: Aspirin 81 mg Enteric Coated Tablet PO SCH (11:23)
[2022-05-12] MEDS: Finasteride 5 MG TAB PO SCH (11:23)
[2022-05-12] MEDS: Furosemide 20 MG TAB PO SCH (11:23)
[2022-05-12] MEDS: DULoxetine 30 MG CAP PO SCH ×2 (11:23→20:22)
[2022-05-12] MEDS: Fenofibrate Nanocrystallized 145 MG TAB PO SCH (11:24)
[2022-05-12] MEDS: CO Q-10 CAPSULE 50 MG PO SCH (20:20)
[2022-05-12] MEDS: Aripiprazole 10 MG TAB PO SCH (20:20)
[2022-05-12] MEDS: Atorvastatin Calcium 40 MG TAB PO SCH (20:21)
[2022-05-12] MEDS: cloNIDine 0.1 MG TAB PO SCH (20:22)
[2022-05-13] MEDS: Insulin Regular 300 UNITS/3 ML VIAL SC PRN ×2 (06:43→09:00)
[2022-05-13] MEDS: Fenofibrate Nanocrystallized 145 MG TAB PO SCH (08:52)
[2022-05-13] MEDS: Finasteride 5 MG TAB PO SCH (08:52)
[2022-05-13] MEDS: Vit A,C & E/Lutein/Minerals Tablet PO SCH (08:52)
[2022-05-13] MEDS: Acetaminophen 325 MG TAB PO PRN (08:53)
[2022-05-13] MEDS: Losartan Potassium 50 MG TAB PO SCH (08:54)
[2022-05-13] MEDS: Carvedilol 25 MG TAB PO SCH (08:54)
[2022-05-13] MEDS: DULoxetine 30 MG CAP PO SCH (08:55)
[2022-05-13] MEDS: Amlodipine 10 MG TAB PO SCH (08:55)
[2022-05-13] MEDS: Clopidogrel Bisulfate 75 MG TAB PO SCH (08:56)
[2022-05-13] MEDS: Empagliflozin 25 MG TAB PO SCH (08:56)
[2022-05-13] MEDS: Aspirin 81 mg Enteric Coated Tablet PO SCH (08:56)
[2022-05-13] MEDS: Furosemide 20 MG TAB PO SCH (08:57)
[2022-05-13] MEDS: Lantus 1000 UNITS/10 ML VIAL SC SCH (08:59)
[2022-05-13 11:44] LABS: Anion Gap 11 mmol/L (10-20); BUN (Urea Nitrogen) 41 mg/dL (8.4-25.7); Calc. Creatinine Clearance 48 mL/min (70-130); Calcium 8.2 mg/dL (7.8-10.44); Carbon Dioxide 27 mmol/L (23-31); Chloride 102 mmol/L (98-107); Estimated GFR 25; Glucose 313 mg/dL (80-115); Sodium 136 mmol/L (136-145)
[2022-05-13 13:17] VITALS: TEMP 98
[2022-05-13] MEDS ORDERED: FLU VACC QS2022-23(65YR UP)/PF 240 MCG/0.7 ML SYRINGE IM ONE (16:15)
[2022-05-13 16:35] VITALS: BP 149/88
== END 2022-05-13 15:25 | disposition home or self-care (01) | DRG 281 ==
LOC: CSHERS 20:25 → INTOOBSV 23:26 → CSHERHOLD 23:26 → CSHTELE 05-10 14:36 → OBSVTOIN 05-11 14:07
PROVIDERS: ADMIT Student in an Organized Health Care Education/Training Program; ATTEND Internal Medicine
PROC: 5A09357 Assistance with Respiratory Ventilation, Less than 24 Consecutive Hours, Continuous Positive Airway Pressure (ICD-10-PCS; principal; 2022-05-11)
DX: I16.0 Hypertensive urgency (principal); I21.A1 Myocardial infarction type 2; J90 Pleural effusion, not elsewhere classified; N18.4 Chronic kidney disease, stage 4 (severe); J98.11 Atelectasis; G47.33 Obstructive sleep apnea (adult) (pediatric); I13.0 Hypertensive heart and chronic kidney disease with heart failure and stage 1 through stage 4 chronic kidney disease, or unspecified chronic kidney disease; I25.10 Atherosclerotic heart disease of native coronary artery without angina pectoris; K21.9 Gastro-esophageal reflux disease without esophagitis; N40.0 Benign prostatic hyperplasia without lower urinary tract symptoms; E11.22 Type 2 diabetes mellitus with diabetic chronic kidney disease; E66.01 Morbid (severe) obesity due to excess calories; I48.0 Paroxysmal atrial fibrillation; F41.9 Anxiety disorder, unspecified; F32.A Depression, unspecified; I50.9 Heart failure, unspecified; E87.6 Hypokalemia; D63.1 Anemia in chronic kidney disease; E11.59 Type 2 diabetes mellitus with other circulatory complications; Z20.822 Contact with and (suspected) exposure to COVID-19; E88.09 Other disorders of plasma-protein metabolism, not elsewhere classified; E78.2 Mixed hyperlipidemia; Z88.2 Allergy status to sulfonamides; Z79.82 Long term (current) use of aspirin; Z79.899 Other long term (current) drug therapy; Z79.4 Long term (current) use of insulin; Z95.5 Presence of coronary angioplasty implant and graft; Z90.49 Acquired absence of other specified parts of digestive tract; Z68.38 Body mass index [BMI] 38.0-38.9, adult
CPT/HCPCS: 36415; 36416; 70551; 71045; 80048; 80053; 81003; 81015; 82553; 82805; 83735; 84100; 84443; 84484; 85025; 93005; 94660; 94760; 96372; G0378; J1650; J1815; U0002

== ENCOUNTER 2022-05-21 20:36 | Inpatient (IN) | payer MEDICARE ==
[2022-05-21 21:14] LABS: #Eosinphils 0.2 10x3/uL (0.0-0.5); #Monocytes 0.7 10x3/uL (0.0-1.1); #Neutrophils 3.8 10x3/uL (1.5-8.4); %Basophils 0.6 % (0.0-2.0); %Eosinophils 3.2 % (0.0-6.0); %Lymphocytes 23.9 % (18.0-47.0); %Monocytes 11.1 % (0.0-10.0); Hemoglobin 9.9 g/dL (13.5-17.5); Mean Corpuscular HGB CONC 31.9 g/dL (32.0-36.0); Mean Corpuscular Hemoglobin 24.6 pg (27.0-33.0); Mean Corpuscular Volume 77.1 fl (81.2-95.1); Mean Platelet Volume 9.9 fl (7.4-10.4); Platelet Count 265 10x3/uL (150-450); RBC Distribution Width 14.1 % (11.5-14.5); Red Blood Cell (RBC) Count 4.02 10x6/uL (4.32-5.72); White Blood Cell (WBC) Count 6.2 10x3/uL (3.5-10.5)
[2022-05-21 21:31] LABS: ALT (SGPT) 119 U/L (8-55); AST (SGOT) 107 U/L (5-34); Albumin 3.1 g/dL (3.4-4.8); Alkaline Phosphatase 46 U/L (40-110); Anion Gap 15 mmol/L (10-20); BUN (Urea Nitrogen) 55 mg/dL (8.4-25.7); Bilirubin, Total 0.4 mg/dL (0.2-1.2); Calc. Creatinine Clearance 0 mL/min (70-130); Calcium 8.2 mg/dL (7.8-10.44); Carbon Dioxide 22 mmol/L (23-31); Chloride 103 mmol/L (98-107); Estimated GFR 21; Globulin 1.9 g/dL (2.4-3.5); Glucose 150 mg/dL (80-115); Lipase 54 U/L (8-78); Potassium 4.3 mmol/L (3.5-5.1); Sodium 136 mmol/L (136-145)
[2022-05-21 22:28] LABS: Bilirubin Neg (Negative); Blood, Urine Negative (Negative); Clarity Clear (Clear); Glucose, Urine (Dipstick) >=1000 mg/dL (Negative); Ketone, Urine Negative (Negative); Leukocyte Negative (Negative); Nitrite Negative (Negative); Protein, Urine (Dipstick) 100 mg/dl (Neg-Trace); Urobilinogen Normal mg/dL (Less than 2)
[2022-05-21 22:33] LABS: RBC/HPF None Seen HPF (0-3); Squamous Epithelial 0-3 HPF (0-3); WBC/HPF 0-3 HPF (0-3)
[2022-05-21] MEDS ORDERED: Aspirin Chewable 81 MG TAB ONE (23:23)
[2022-05-22 00:48] LABS: Troponin I 0.023 ng/mL (< 0.028)
[2022-05-22] MEDS ORDERED: Nitroglycerin 0.4 MG TAB (25 Tab Bottle) SL PRN (01:20)
[2022-05-22] MEDS ORDERED: Melatonin 3 MG TAB PO PRN (01:20)
[2022-05-22] MEDS ORDERED: HUMALOG INSULIN PUMP SC SCH (01:30)
[2022-05-22 02:06] VITALS: BMI 42.0
[2022-05-22 03:30] LABS: #Basophils 0.1 10x3/uL (0.0-0.2); #Eosinphils 0.3 10x3/uL (0.0-0.5); #Monocytes 0.7 10x3/uL (0.0-1.1); #Neutrophils 3.1 10x3/uL (1.5-8.4); %Basophils 0.9 % (0.0-2.0); %Eosinophils 4.7 % (0.0-6.0); %Lymphocytes 26.5 % (18.0-47.0); %Monocytes 12.3 % (0.0-10.0); %Neutrophils 55.4 % (40.0-75.0); Hemoglobin 10.1 g/dL (13.5-17.5); Mean Corpuscular HGB CONC 31.8 g/dL (32.0-36.0); Mean Corpuscular Hemoglobin 24.5 pg (27.0-33.0); Mean Platelet Volume 9.6 fl (7.4-10.4); Platelet Count 246 10x3/uL (150-450); RBC Distribution Width 14.2 % (11.5-14.5); Red Blood Cell (RBC) Count 4.13 10x6/uL (4.32-5.72); White Blood Cell (WBC) Count 5.6 10x3/uL (3.5-10.5)
[2022-05-22 03:44] LABS: Anion Gap 12 mmol/L (10-20); BUN (Urea Nitrogen) 53 mg/dL (8.4-25.7); Calc. Creatinine Clearance 46 mL/min (70-130); Calcium 8.3 mg/dL (7.8-10.44); Carbon Dioxide 24 mmol/L (23-31); Chloride 104 mmol/L (98-107); Estimated GFR 22; Glucose 146 mg/dL (80-115); Magnesium 2.6 mg/dL (1.6-2.6); Sodium 136 mmol/L (136-145)
[2022-05-22 03:53] LABS: Troponin I 0.028 ng/mL (< 0.028)
[2022-05-22] MEDS: Vit A,C & E/Lutein/Minerals Tablet PO SCH ×2 (08:58→23:20)
[2022-05-22] MEDS: Magnesium Oxide 250 MG TAB PO SCH (08:58)
[2022-05-22] MEDS: Aspirin 81 mg Enteric Coated Tablet PO SCH (08:58)
[2022-05-22] MEDS: DULoxetine 30 MG CAP PO SCH ×2 (08:59→22:00)
[2022-05-22] MEDS ORDERED: [UNRECOGNIZED DRUG - OTHER] PO SCH (09:00)
[2022-05-22] MEDS ORDERED: PHOSPHO PO SCH (09:00)
[2022-05-22] MEDS ORDERED: AST PO SCH (09:00)
[2022-05-22] MEDS ORDERED: FINERENONE 10 MG PO SCH (09:00)
[2022-05-22] MEDS ORDERED: GLUCOS SUL PO SCH (09:00)
[2022-05-22] MEDS ORDERED: [UNRECOGNIZED DRUG - OTHER] PO SCH (09:00)
[2022-05-22] MEDS ORDERED: CHROMIUM PICOLINATE 200 MCG PO SCH (09:00)
[2022-05-22] MEDS ORDERED: DHA PO SCH (09:00)
[2022-05-22] MEDS ORDERED: Empagliflozin 25 MG TAB PO SCH (09:00)
[2022-05-22] MEDS: hydrALAZINE 25 MG TAB PO SCH ×3 (09:00→21:57)
[2022-05-22] MEDS ORDERED: EPA PO SCH (09:00)
[2022-05-22] MEDS ORDERED: KRILL PO SCH (09:00)
[2022-05-22] MEDS: Amlodipine 10 MG TAB PO SCH (09:03)
[2022-05-22] MEDS: Finasteride 5 MG TAB PO SCH (09:03)
[2022-05-22] MEDS: Calcitriol 0.25 MCG CAP PO SCH (09:03)
[2022-05-22] MEDS: Clopidogrel Bisulfate 75 MG TAB PO SCH (09:03)
[2022-05-22] MEDS: Losartan Potassium 50 MG TAB PO SCH (09:04)
[2022-05-22] MEDS: Ferrous Sulfate 325 MG TAB PO SCH (09:05)
[2022-05-22] MEDS: Amiodarone 200 MG TAB PO SCH (09:05)
[2022-05-22] MEDS: Cholecalciferol 1,000 UNITS (25 MCG) TAB PO SCH (09:05)
[2022-05-22] MEDS: Multivitamin W/ Minerals 1 TAB PO SCH (09:06)
[2022-05-22] MEDS: Furosemide 20 MG TAB PO SCH (09:06)
[2022-05-22] MEDS: Carvedilol 25 MG TAB PO SCH ×2 (09:09→21:58)
[2022-05-22 13:31] LABS: Iron 37 ug/dL (65-175); Iron Binding Capacity, Total 276 mcg/dL (261-462)
[2022-05-22 14:20] LABS: Free T4 (Free Thyroxine) 1.23 ng/dL (0.70-1.48); Hep A IgM AB Non-Reactive (NonReactive); Hep A IgM S/CO 0.21 S/CO (0-0.79); Hep C IgG Ab Non-Reactive (NonReactive); Hep C Index 0.05 S/CO (0-0.79); Hepatitis B Core IgM Abs Non-Reactive (NonReactive)
[2022-05-22 14:21] LABS: Vitamin D, 25 Hydroxy 28.1 ng/ml (> 30.0)
[2022-05-22] MEDS ORDERED: Ondansetron PF 4 MG/2 ML Vial IVP PRN (14:54)
[2022-05-22 15:33] LABS: HBSAg Index 0.37 S/CO (0-0.99); Hep B Surf Ag Non-Reactive S/CO (NonReactive)
[2022-05-22] MEDS: Aripiprazole 10 MG TAB PO SCH (21:52)
[2022-05-22] MEDS: Atorvastatin Calcium 40 MG TAB PO SCH (21:56)
[2022-05-22] MEDS: cloNIDine 0.1 MG TAB PO SCH (21:56)
[2022-05-22] MEDS: CO Q-10 CAPSULE 50 MG PO SCH (21:59)
[2022-05-23 08:53] LABS: #Eosinphils 0.2 10x3/uL (0.0-0.5); #Monocytes 0.8 10x3/uL (0.0-1.1); #Neutrophils 4.1 10x3/uL (1.5-8.4); %Basophils 0.5 % (0.0-2.0); %Monocytes 11.9 % (0.0-10.0); %Neutrophils 62.3 % (40.0-75.0); Hemoglobin 9.7 g/dL (13.5-17.5); Mean Corpuscular HGB CONC 31.5 g/dL (32.0-36.0); Mean Corpuscular Hemoglobin 24.4 pg (27.0-33.0); Mean Corpuscular Volume 77.6 fl (81.2-95.1); Mean Platelet Volume 10.1 fl (7.4-10.4); Platelet Count 252 10x3/uL (150-450); RBC Distribution Width 14.2 % (11.5-14.5); Red Blood Cell (RBC) Count 3.97 10x6/uL (4.32-5.72); White Blood Cell (WBC) Count 6.6 10x3/uL (3.5-10.5)
[2022-05-23 09:12] LABS: Anion Gap 12 mmol/L (10-20); BUN (Urea Nitrogen) 48 mg/dL (8.4-25.7); Calc. Creatinine Clearance 44 mL/min (70-130); Calcium 8.2 mg/dL (7.8-10.44); Carbon Dioxide 25 mmol/L (23-31); Chloride 102 mmol/L (98-107); Estimated GFR 21; Glucose 144 mg/dL (80-115); Potassium 4.2 mmol/L (3.5-5.1); Sodium 135 mmol/L (136-145)
[2022-05-23] MEDS: Magnesium Oxide 250 MG TAB PO SCH (09:27)
[2022-05-23] MEDS: Cholecalciferol 1,000 UNITS (25 MCG) TAB PO SCH (09:27)
[2022-05-23] MEDS: Ferrous Sulfate 325 MG TAB PO SCH (09:27)
[2022-05-23] MEDS: Calcitriol 0.25 MCG CAP PO SCH (09:27)
[2022-05-23] MEDS: Aspirin 81 mg Enteric Coated Tablet PO SCH (09:28)
[2022-05-23] MEDS: hydrALAZINE 25 MG TAB PO SCH ×3 (09:29→21:04)
[2022-05-23] MEDS: DULoxetine 30 MG CAP PO SCH ×2 (09:30→21:08)
[2022-05-23] MEDS: Amlodipine 10 MG TAB PO SCH (09:31)
[2022-05-23] MEDS: Furosemide 20 MG TAB PO SCH (09:33)
[2022-05-23] MEDS: Amiodarone 200 MG TAB PO SCH (09:33)
[2022-05-23] MEDS: Losartan Potassium 50 MG TAB PO SCH (09:34)
[2022-05-23] MEDS: Vit A,C & E/Lutein/Minerals Tablet PO SCH ×2 (09:34→21:09)
[2022-05-23] MEDS: Clopidogrel Bisulfate 75 MG TAB PO SCH (09:34)
[2022-05-23] MEDS: Multivitamin W/ Minerals 1 TAB PO SCH (09:34)
[2022-05-23] MEDS: Carvedilol 25 MG TAB PO SCH ×2 (09:35→21:07)
[2022-05-23] MEDS: Finasteride 5 MG TAB PO SCH (09:35)
[2022-05-23] MEDS ORDERED: Iron Sucrose Complex 200 MG in Sodium Chloride 0.9% 100 ML IVPB SCH (10:00)
[2022-05-23] MEDS ORDERED: Carbidopa/Levodopa 25-100 mg Tablet PO SCH ×2 (15:00→16:00)
[2022-05-23] MEDS ORDERED: Mag-Al Plus 1200 MG/1200 MG/120 MG/30 ML UDCUP PO PRN (16:26)
[2022-05-23] MEDS ORDERED: Bisacodyl 10 MG SUPP PR PRN (16:27)
[2022-05-23] MEDS: cloNIDine 0.1 MG TAB PO SCH (21:04)
[2022-05-23] MEDS: Aripiprazole 10 MG TAB PO SCH (21:07)
[2022-05-23] MEDS: Atorvastatin Calcium 40 MG TAB PO SCH (21:08)
[2022-05-23] MEDS: CO Q-10 CAPSULE 50 MG PO SCH (21:08)
[2022-05-24 07:36] LABS: Anion Gap 11 mmol/L (10-20); BUN (Urea Nitrogen) 46 mg/dL (8.4-25.7); Calc. Creatinine Clearance 44 mL/min (70-130); Calcium 8.2 mg/dL (7.8-10.44); Carbon Dioxide 25 mmol/L (23-31); Chloride 102 mmol/L (98-107); Estimated GFR 21; Glucose 152 mg/dL (80-115); Potassium 4.4 mmol/L (3.5-5.1); Sodium 134 mmol/L (136-145)
[2022-05-24] MEDS ORDERED: Carbidopa/Levodopa 25-100 mg Tablet PO SCH (09:00)
[2022-05-24] MEDS ORDERED: Ergocalciferol 1.25 MG(50,000 UNITS) CAP PO SCH (09:00)
[2022-05-24] MEDS: hydrALAZINE 25 MG TAB PO SCH (09:19)
[2022-05-24] MEDS: Cholecalciferol 1,000 UNITS (25 MCG) TAB PO SCH (09:19)
[2022-05-24] MEDS: Multivitamin W/ Minerals 1 TAB PO SCH (09:20)
[2022-05-24] MEDS: Magnesium Oxide 250 MG TAB PO SCH (09:20)
[2022-05-24] MEDS: Finasteride 5 MG TAB PO SCH (09:20)
[2022-05-24] MEDS: Carvedilol 25 MG TAB PO SCH (09:20)
[2022-05-24] MEDS: Amiodarone 200 MG TAB PO SCH (09:20)
[2022-05-24] MEDS: Vit A,C & E/Lutein/Minerals Tablet PO SCH (09:20)
[2022-05-24] MEDS: Amlodipine 10 MG TAB PO SCH (09:20)
[2022-05-24] MEDS: Clopidogrel Bisulfate 75 MG TAB PO SCH (09:21)
[2022-05-24] MEDS: Calcitriol 0.25 MCG CAP PO SCH (09:21)
[2022-05-24] MEDS: Ferrous Sulfate 325 MG TAB PO SCH (09:21)
[2022-05-24] MEDS: DULoxetine 30 MG CAP PO SCH (09:21)
[2022-05-24] MEDS: Losartan Potassium 50 MG TAB PO SCH (09:22)
[2022-05-24] MEDS: Furosemide 20 MG TAB PO SCH (09:22)
[2022-05-24 11:00] VITALS: BP 123/78; TEMP 98.3
== END 2022-05-24 11:38 | disposition home health service (06) | DRG 57 ==
LOC: CSHERS 20:36 → CSHTELE 23:29 → OBSVTOIN 05-23 15:30
PROVIDERS: ADMIT Family Medicine; ATTEND Internal Medicine
PROC: 5A09357 Assistance with Respiratory Ventilation, Less than 24 Consecutive Hours, Continuous Positive Airway Pressure (ICD-10-PCS; principal; 2022-05-24)
DX: G20 Parkinson's disease (principal); N17.9 Acute kidney failure, unspecified; Z68.41 Body mass index [BMI] 40.0-44.9, adult; N18.4 Chronic kidney disease, stage 4 (severe); R53.1 Weakness; G47.33 Obstructive sleep apnea (adult) (pediatric); I25.10 Atherosclerotic heart disease of native coronary artery without angina pectoris; E11.22 Type 2 diabetes mellitus with diabetic chronic kidney disease; I48.0 Paroxysmal atrial fibrillation; E66.01 Morbid (severe) obesity due to excess calories; Z96.41 Presence of insulin pump (external) (internal); K21.9 Gastro-esophageal reflux disease without esophagitis; F32.A Depression, unspecified; D63.1 Anemia in chronic kidney disease; C67.9 Malignant neoplasm of bladder, unspecified; K76.9 Liver disease, unspecified; I12.9 Hypertensive chronic kidney disease with stage 1 through stage 4 chronic kidney disease, or unspecified chronic kidney disease; E78.2 Mixed hyperlipidemia; E55.9 Vitamin D deficiency, unspecified; F41.9 Anxiety disorder, unspecified; Z88.2 Allergy status to sulfonamides; Z88.8 Allergy status to other drugs, medicaments and biological substances; Z79.82 Long term (current) use of aspirin; Z95.5 Presence of coronary angioplasty implant and graft; Z79.01 Long term (current) use of anticoagulants; Z79.4 Long term (current) use of insulin; Z79.899 Other long term (current) drug therapy; Z79.84 Long term (current) use of oral hypoglycemic drugs; Z90.89 Acquired absence of other organs; Z89.421 Acquired absence of other right toe(s); Z98.84 Bariatric surgery status; Z82.49 Family history of ischemic heart disease and other diseases of the circulatory system; Z90.49 Acquired absence of other specified parts of digestive tract; Z20.822 Contact with and (suspected) exposure to COVID-19
CPT/HCPCS: 36415; 36416; 71045; 76705; 80048; 80074; 81003; 81015; 82306; 82550; 83540; 83550; 83690; 83735; 84439; 84481; 84484; 85025; 93005; 96372; 96374; 96375; G0378; J1650; J1756; J2405; J3490; U0003; U0005

== ENCOUNTER 2022-07-09 15:55 | Inpatient (IN) | payer MEDICARE ==
[2022-07-09 17:13] LABS: #Basophils 0.1 10x3/uL (0.0-0.2); #Eosinphils 0.2 10x3/uL (0.0-0.5); #Monocytes 0.7 10x3/uL (0.0-1.1); #Neutrophils 3.9 10x3/uL (1.5-8.4); %Basophils 0.8 % (0.0-2.0); %Eosinophils 2.9 % (0.0-6.0); %Lymphocytes 22.7 % (18.0-47.0); %Monocytes 11.8 % (0.0-10.0); %Neutrophils 61.6 % (40.0-75.0); Hemoglobin 9.6 g/dL (13.5-17.5); Mean Corpuscular HGB CONC 31.3 g/dL (32.0-36.0); Mean Corpuscular Hemoglobin 23.8 pg (27.0-33.0); Mean Corpuscular Volume 76.2 fl (81.2-95.1); Mean Platelet Volume 9.8 fl (7.4-10.4); Platelet Count 205 10x3/uL (150-450); Red Blood Cell (RBC) Count 4.03 10x6/uL (4.32-5.72); White Blood Cell (WBC) Count 6.3 10x3/uL (3.5-10.5)
[2022-07-09 17:23] LABS: ALT (SGPT) 25 U/L (8-55); AST (SGOT) 30 U/L (5-34); Albumin 3.5 g/dL (3.4-4.8); Alkaline Phosphatase 75 U/L (40-110); Anion Gap 15 mmol/L (10-20); BUN (Urea Nitrogen) 33 mg/dL (8.4-25.7); Bilirubin, Total 0.6 mg/dL (0.2-1.2); Calc. Creatinine Clearance 0 mL/min (70-130); Calcium 8.4 mg/dL (7.8-10.44); Carbon Dioxide 23 mmol/L (23-31); Chloride 99 mmol/L (98-107); Estimated GFR 29; Globulin 2.1 g/dL (2.4-3.5); Glucose 173 mg/dL (80-115); Lipase 82 U/L (8-78); Potassium 4.1 mmol/L (3.5-5.1); Protein, Total 5.6 g/dL (5.8-8.1); Sodium 133 mmol/L (136-145)
[2022-07-09] MEDS ORDERED: CEFAZOLIN 2 GM VIAL ONE (17:40)
[2022-07-09] MEDS ORDERED: Vancomycin 1 GM VIAL ONE (17:40)
[2022-07-09] MEDS ORDERED: Vancomycin HCl 500 MG VIAL ONE (17:41)
[2022-07-09] MEDS ORDERED: Acetaminophen 325 MG TAB PO PRN (18:24)
[2022-07-09] MEDS ORDERED: Ondansetron ODT 4 MG TAB PO PRN (18:24)
[2022-07-09] MEDS ORDERED: Ondansetron PF 4 MG/2 ML Vial IVP PRN (18:24)
[2022-07-09] MEDS ORDERED: HumaLOG 300 UNITS/3 ML VIAL SC PRN (18:50)
[2022-07-09] MEDS ORDERED: Dextrose 50% Abboject 50 ML SYRINGE SLOW IVP PRN (18:50)
[2022-07-09] MEDS ORDERED: Dextrose 5% in Water 1,000 ML IV PRN (18:50)
[2022-07-09 20:44] VITALS: BMI 39.6
[2022-07-09] MEDS ORDERED: Cefepime 1 GM in Sodium Chloride 0.9% 100 ML IVPB SCH (21:00)
[2022-07-09 23:12] LABS: SARS-CoV-2 NAA Rapid Test DETECTED (NotDetected)
[2022-07-10] MEDS: Cefepime 1 GM in Sodium Chloride 0.9% 100 ML IVPB SCH ×3 (00:14→23:29)
[2022-07-10 04:23] LABS: #Eosinphils 0.2 10x3/uL (0.0-0.5); #Monocytes 0.8 10x3/uL (0.0-1.1); #Neutrophils 3.5 10x3/uL (1.5-8.4); %Basophils 0.7 % (0.0-2.0); %Eosinophils 3.4 % (0.0-6.0); %Lymphocytes 25.8 % (18.0-47.0); %Monocytes 12.7 % (0.0-10.0); %Neutrophils 57.2 % (40.0-75.0); Hemoglobin 9.8 g/dL (13.5-17.5); Mean Corpuscular HGB CONC 31.8 g/dL (32.0-36.0); Mean Corpuscular Hemoglobin 24.1 pg (27.0-33.0); Mean Corpuscular Volume 75.7 fl (81.2-95.1); Mean Platelet Volume 9.7 fl (7.4-10.4); Platelet Count 194 10x3/uL (150-450); RBC Distribution Width 14.8 % (11.5-14.5); Red Blood Cell (RBC) Count 4.07 10x6/uL (4.32-5.72); White Blood Cell (WBC) Count 6.1 10x3/uL (3.5-10.5)
[2022-07-10 04:44] LABS: Anion Gap 14 mmol/L (10-20); BUN (Urea Nitrogen) 33 mg/dL (8.4-25.7); Calc. Creatinine Clearance 54 mL/min (70-130); Calcium 8.8 mg/dL (7.8-10.44); Carbon Dioxide 26 mmol/L (23-31); Chloride 102 mmol/L (98-107); Estimated GFR 29; Glucose 131 mg/dL (80-115); Potassium 3.8 mmol/L (3.5-5.1); Sodium 138 mmol/L (136-145)
[2022-07-10] MEDS ORDERED: Nitroglycerin 0.4 MG TAB (25 Tab Bottle) SL PRN (15:40)
[2022-07-10] MEDS ORDERED: Melatonin 3 MG TAB PO PRN (16:47)
[2022-07-10] MEDS: Aspirin 81 mg Enteric Coated Tablet PO SCH (16:57)
[2022-07-10] MEDS ORDERED: Losartan Potassium 50 MG TAB PO SCH (17:00)
[2022-07-10] MEDS ORDERED: Cholecalciferol 1,000 UNITS (25 MCG) TAB PO SCH (17:00)
[2022-07-10] MEDS ORDERED: Amlodipine 10 MG TAB PO SCH (17:00)
[2022-07-10] MEDS ORDERED: Clopidogrel Bisulfate 75 MG TAB PO SCH (17:00)
[2022-07-10] MEDS ORDERED: Amiodarone 200 MG TAB PO SCH (17:00)
[2022-07-10] MEDS ORDERED: Calcitriol 0.25 MCG CAP PO SCH (17:00)
[2022-07-10] MEDS ORDERED: Furosemide 20 MG TAB PO SCH (17:00)
[2022-07-10] MEDS: HumaLOG 300 UNITS/3 ML VIAL SC PRN (17:14)
[2022-07-10] MEDS ORDERED: GLUCOS SUL PO SCH (21:00)
[2022-07-10] MEDS ORDERED: [UNRECOGNIZED DRUG - OTHER] PO SCH (21:00)
[2022-07-10] MEDS: Carvedilol 25 MG TAB PO SCH (21:11)
[2022-07-10] MEDS: hydrALAZINE 25 MG TAB PO SCH (21:11)
[2022-07-10] MEDS: VANCOMYCIN 1.25 GM/250 ML BAG 1.25 GM in Premix Bag 1 BAG IVPB SCH (21:11)
[2022-07-10] MEDS: cloNIDine 0.1 MG TAB PO SCH (21:12)
[2022-07-10] MEDS: Carbidopa/Levodopa 25-100 mg Tablet PO SCH (21:12)
[2022-07-10] MEDS: Aripiprazole 10 MG TAB PO SCH (21:12)
[2022-07-10] MEDS: Atorvastatin Calcium 40 MG TAB PO SCH (21:12)
[2022-07-10] MEDS: DULoxetine 30 MG CAP PO SCH (21:12)
[2022-07-10] MEDS: CO Q-10 CAPSULE 50 MG PO SCH (21:22)
[2022-07-11 05:10] LABS: #Eosinphils 0.2 10x3/uL (0.0-0.5); #Monocytes 0.8 10x3/uL (0.0-1.1); #Neutrophils 3.3 10x3/uL (1.5-8.4); %Basophils 0.7 % (0.0-2.0); %Eosinophils 3.8 % (0.0-6.0); %Lymphocytes 24.5 % (18.0-47.0); %Monocytes 13.2 % (0.0-10.0); %Neutrophils 57.6 % (40.0-75.0); Hemoglobin 9.9 g/dL (13.5-17.5); Mean Corpuscular HGB CONC 31.5 g/dL (32.0-36.0); Mean Corpuscular Hemoglobin 23.9 pg (27.0-33.0); Mean Corpuscular Volume 75.7 fl (81.2-95.1); Mean Platelet Volume 9.5 fl (7.4-10.4); Platelet Count 194 10x3/uL (150-450); RBC Distribution Width 14.9 % (11.5-14.5); Red Blood Cell (RBC) Count 4.15 10x6/uL (4.32-5.72); White Blood Cell (WBC) Count 5.8 10x3/uL (3.5-10.5)
[2022-07-11 05:27] LABS: Anion Gap 15 mmol/L (10-20); BUN (Urea Nitrogen) 31 mg/dL (8.4-25.7); Calc. Creatinine Clearance 57 mL/min (70-130); Calcium 8.7 mg/dL (7.8-10.44); Carbon Dioxide 24 mmol/L (23-31); Chloride 102 mmol/L (98-107); Estimated GFR 31; Glucose 151 mg/dL (80-115); Potassium 3.7 mmol/L (3.5-5.1); Sodium 137 mmol/L (136-145)
[2022-07-11] MEDS: Finasteride 5 MG TAB PO SCH (08:27)
[2022-07-11] MEDS: Vit A,C & E/Lutein/Minerals Tablet PO SCH (08:27)
[2022-07-11] MEDS: Carbidopa/Levodopa 25-100 mg Tablet PO SCH ×2 (08:27→21:07)
[2022-07-11] MEDS: Amiodarone 200 MG TAB PO SCH (08:29)
[2022-07-11] MEDS: Amlodipine 10 MG TAB PO SCH (08:29)
[2022-07-11] MEDS: Cholecalciferol 1,000 UNITS (25 MCG) TAB PO SCH (08:29)
[2022-07-11] MEDS: Ferrous Sulfate 325 MG TAB PO SCH (08:30)
[2022-07-11] MEDS: Clopidogrel Bisulfate 75 MG TAB PO SCH (08:30)
[2022-07-11] MEDS: Furosemide 20 MG TAB PO SCH (08:30)
[2022-07-11] MEDS: Calcitriol 0.25 MCG CAP PO SCH (08:30)
[2022-07-11] MEDS: hydrALAZINE 25 MG TAB PO SCH ×2 (08:30→14:32)
[2022-07-11] MEDS: DULoxetine 30 MG CAP PO SCH ×2 (08:30→21:06)
[2022-07-11] MEDS: Carvedilol 25 MG TAB PO SCH ×2 (08:30→21:05)
[2022-07-11] MEDS: Losartan Potassium 50 MG TAB PO SCH (08:31)
[2022-07-11] MEDS: Cefepime 1 GM in Sodium Chloride 0.9% 100 ML IVPB SCH (08:31)
[2022-07-11] MEDS: Magnesium Oxide 250 MG TAB PO SCH (08:31)
[2022-07-11] MEDS ORDERED: KRILL PO SCH (09:00)
[2022-07-11] MEDS ORDERED: [UNRECOGNIZED DRUG - OTHER] PO SCH (09:00)
[2022-07-11] MEDS ORDERED: EPA PO SCH (09:00)
[2022-07-11] MEDS ORDERED: DHA PO SCH (09:00)
[2022-07-11] MEDS ORDERED: PHOSPHO PO SCH (09:00)
[2022-07-11] MEDS ORDERED: AST PO SCH (09:00)
[2022-07-11] MEDS ORDERED: FINERENONE 10 MG PO SCH (09:00)
[2022-07-11] MEDS: Ampicillin/Sulbactam 3 GM in Sodium Chloride 0.9% 100 ML IVPB SCH ×2 (11:53→17:09)
[2022-07-11] MEDS: Heparin 5,000 UNITS/ML VIAL SC SCH ×2 (14:32→21:06)
[2022-07-11] MEDS ORDERED: CHROMIUM PICOLINATE 200 MCG PO SCH (15:42)
[2022-07-11] MEDS: HumaLOG 300 UNITS/3 ML VIAL SC PRN (16:41)
[2022-07-11] MEDS: CO Q-10 CAPSULE 50 MG PO SCH (21:05)
[2022-07-11] MEDS: Atorvastatin Calcium 40 MG TAB PO SCH (21:05)
[2022-07-11] MEDS: cloNIDine 0.1 MG TAB PO SCH (21:05)
[2022-07-11] MEDS: VANCOMYCIN 1.25 GM/250 ML BAG 1.25 GM in Premix Bag 1 BAG IVPB SCH (21:06)
[2022-07-11] MEDS: Aripiprazole 10 MG TAB PO SCH (21:06)
[2022-07-12] MEDS: hydrALAZINE 25 MG TAB PO SCH ×2 (00:04→09:21)
[2022-07-12 00:37] LABS: Vancomycin, Trough 12.4 ug/mL
[2022-07-12 04:00] LABS: #Eosinphils 0.3 10x3/uL (0.0-0.5); #Monocytes 0.7 10x3/uL (0.0-1.1); #Neutrophils 3.3 10x3/uL (1.5-8.4); %Basophils 0.7 % (0.0-2.0); %Eosinophils 4.3 % (0.0-6.0); %Lymphocytes 26.7 % (18.0-47.0); %Monocytes 11.6 % (0.0-10.0); %Neutrophils 56.5 % (40.0-75.0); Hemoglobin 9.6 g/dL (13.5-17.5); Mean Corpuscular HGB CONC 31.9 g/dL (32.0-36.0); Mean Corpuscular Hemoglobin 23.9 pg (27.0-33.0); Mean Corpuscular Volume 75.1 fl (81.2-95.1); Mean Platelet Volume 9.5 fl (7.4-10.4); Platelet Count 205 10x3/uL (150-450); RBC Distribution Width 14.7 % (11.5-14.5); Red Blood Cell (RBC) Count 4.01 10x6/uL (4.32-5.72); White Blood Cell (WBC) Count 5.9 10x3/uL (3.5-10.5)
[2022-07-12 04:09] LABS: Anion Gap 14 mmol/L (10-20); BUN (Urea Nitrogen) 32 mg/dL (8.4-25.7); Calc. Creatinine Clearance 60 mL/min (70-130); Calcium 8.6 mg/dL (7.8-10.44); Carbon Dioxide 23 mmol/L (23-31); Chloride 101 mmol/L (98-107); Estimated GFR 33; Glucose 155 mg/dL (80-115); Magnesium 2.1 mg/dL (1.6-2.6); Sodium 134 mmol/L (136-145)
[2022-07-12] MEDS: Ampicillin/Sulbactam 3 GM in Sodium Chloride 0.9% 100 ML IVPB SCH ×2 (06:20)
[2022-07-12 07:43] VITALS: BP 142/59; TEMP 98.2
[2022-07-12] MEDS ORDERED: Amoxicillin/Potassium Clav 875 MG TAB PO SCH (09:00)
[2022-07-12] MEDS ORDERED: Ergocalciferol 1.25 MG(50,000 UNITS) CAP PO SCH (09:00)
[2022-07-12] MEDS ORDERED: Doxycycline 100 MG CAP PO SCH (09:00)
[2022-07-12] MEDS: Heparin 5,000 UNITS/ML VIAL SC SCH ×2 (09:20→09:21)
[2022-07-12] MEDS: Carbidopa/Levodopa 25-100 mg Tablet PO SCH (09:20)
[2022-07-12] MEDS: Amlodipine 10 MG TAB PO SCH (09:21)
[2022-07-12] MEDS: Ferrous Sulfate 325 MG TAB PO SCH (09:21)
[2022-07-12] MEDS: Magnesium Oxide 250 MG TAB PO SCH (09:21)
[2022-07-12] MEDS: Calcitriol 0.25 MCG CAP PO SCH (09:21)
[2022-07-12] MEDS: Aspirin 81 mg Enteric Coated Tablet PO SCH (09:22)
[2022-07-12] MEDS: Amiodarone 200 MG TAB PO SCH (09:22)
[2022-07-12] MEDS: DULoxetine 30 MG CAP PO SCH (09:22)
[2022-07-12] MEDS: Furosemide 20 MG TAB PO SCH (09:22)
[2022-07-12] MEDS: Finasteride 5 MG TAB PO SCH (09:22)
[2022-07-12] MEDS: Carvedilol 25 MG TAB PO SCH (09:22)
[2022-07-12] MEDS: Clopidogrel Bisulfate 75 MG TAB PO SCH (09:22)
[2022-07-12] MEDS: Losartan Potassium 50 MG TAB PO SCH (09:22)
[2022-07-12] MEDS: Cholecalciferol 1,000 UNITS (25 MCG) TAB PO SCH (09:23)
[2022-07-12] MEDS: Vit A,C & E/Lutein/Minerals Tablet PO SCH (09:24)
== END 2022-07-12 11:02 | disposition home or self-care (01) | DRG 637 ==
LOC: CSHERS 15:55 → CSHTELE 19:40 → INTOOBSV 19:40 → OBSVTOIN 07-11 08:41
PROVIDERS: ADMIT Student in an Organized Health Care Education/Training Program; ATTEND Family Medicine
PROC: 5A09357 Assistance with Respiratory Ventilation, Less than 24 Consecutive Hours, Continuous Positive Airway Pressure (ICD-10-PCS; 2022-07-10)
PROC: 8E0ZXY6 Isolation (ICD-10-PCS; principal; 2022-07-11)
DX: E11.628 Type 2 diabetes mellitus with other skin complications (principal); U07.1 COVID-19; L03.115 Cellulitis of right lower limb; N18.4 Chronic kidney disease, stage 4 (severe); I25.10 Atherosclerotic heart disease of native coronary artery without angina pectoris; I48.0 Paroxysmal atrial fibrillation; E11.22 Type 2 diabetes mellitus with diabetic chronic kidney disease; K21.9 Gastro-esophageal reflux disease without esophagitis; F32.A Depression, unspecified; E66.9 Obesity, unspecified; G20 Parkinson's disease; E11.65 Type 2 diabetes mellitus with hyperglycemia; Z88.2 Allergy status to sulfonamides; Z79.4 Long term (current) use of insulin; Z88.8 Allergy status to other drugs, medicaments and biological substances; Z79.82 Long term (current) use of aspirin; Z79.899 Other long term (current) drug therapy; Z68.39 Body mass index [BMI] 39.0-39.9, adult
CPT/HCPCS: 36415; 36416; 80048; 80053; 80202; 83605; 83690; 83735; 85025; 93923; 94660; 94760; 96375; 96376; 97139; G0378; J0295; J0692; J1644; J1815; J3370; J3490; U0002

== ENCOUNTER 2022-08-02 08:08 | Outpatient (CLI) | payer MEDICARE | END 2022-08-02 08:09 | disposition home or self-care (01) | LOC: CSHWCC 08:08 | PROVIDERS: ATTEND Nurse Practitioner Family | DX: S71.101D Unspecified open wound, right thigh, subsequent encounter (principal) ==

== ENCOUNTER 2022-09-20 13:29 | Outpatient (CLI) | payer MEDICARE | END 2022-09-20 13:30 | disposition home or self-care (01) | LOC: CSHCT 13:29 | PROVIDERS: ATTEND Urology | DX: C67.1 Malignant neoplasm of dome of bladder (principal); N18.32 Chronic kidney disease, stage 3b; J90 Pleural effusion, not elsewhere classified; R18.8 Other ascites; K59.89 Other specified functional intestinal disorders; M89.8X8 Other specified disorders of bone, other site | CPT/HCPCS: 74176 ==

== ENCOUNTER 2022-10-04 19:39 | Inpatient (IN) | payer MEDICARE ==
[2022-10-04 20:24] LABS: #Basophils 0.1 10x3/uL (0.0-0.2); #Eosinphils 0.2 10x3/uL (0.0-0.5); #Monocytes 0.5 10x3/uL (0.0-1.1); #Neutrophils 3.5 10x3/uL (1.5-8.4); %Basophils 0.9 % (0.0-2.0); %Eosinophils 4.3 % (0.0-6.0); %Lymphocytes 24.3 % (18.0-47.0); %Monocytes 8.5 % (0.0-10.0); Hemoglobin 9.3 g/dL (13.5-17.5); Mean Corpuscular HGB CONC 31.5 g/dL (32.0-36.0); Mean Platelet Volume 9.4 fl (7.4-10.4); Platelet Count 173 10x3/uL (150-450); RBC Distribution Width 16.8 % (11.5-14.5); Red Blood Cell (RBC) Count 3.88 10x6/uL (4.32-5.72); White Blood Cell (WBC) Count 5.6 10x3/uL (3.5-10.5)
[2022-10-04 20:35] LABS: ALT (SGPT) 11 U/L (8-55); AST (SGOT) 12 U/L (5-34); Albumin 3.6 g/dL (3.4-4.8); Alkaline Phosphatase 72 U/L (40-110); Anion Gap 13 mmol/L (10-20); BUN (Urea Nitrogen) 49 mg/dL (8.4-25.7); Bilirubin, Total 0.4 mg/dL (0.2-1.2); Calc. Creatinine Clearance 0 mL/min (70-130); Calcium 8.5 mg/dL (7.8-10.44); Carbon Dioxide 24 mmol/L (23-31); Chloride 103 mmol/L (98-107); Estimated GFR 26; Globulin 2.2 g/dL (2.4-3.5); Glucose 158 mg/dL (80-115); Magnesium 2.2 mg/dL (1.6-2.6); Potassium 4.5 mmol/L (3.5-5.1); Protein, Total 5.8 g/dL (5.8-8.1); Sodium 135 mmol/L (136-145)
[2022-10-04] MEDS ORDERED: Glucagon 1 MG/ML KIT IM PRN (21:30)
[2022-10-04] MEDS ORDERED: Ondansetron PF 4 MG/2 ML Vial IVP PRN (21:30)
[2022-10-04] MEDS ORDERED: Guaifenesin DM 100-10/5 ML UDCUP PO PRN (21:30)
[2022-10-04] MEDS ORDERED: HumaLOG 300 UNITS/3 ML VIAL SC PRN (21:30)
[2022-10-04] MEDS ORDERED: Senokot S 8.6-50 MG TAB PO PRN (21:30)
[2022-10-04] MEDS ORDERED: Dextrose 5% in Water 1,000 ML IV PRN (21:30)
[2022-10-04] MEDS ORDERED: Dextrose 50% Abboject 50 ML SYRINGE SLOW IVP PRN (21:30)
[2022-10-04] MEDS ORDERED: Calcium Carbonate 500 MG ChewTAB PO PRN (21:30)
[2022-10-04] MEDS ORDERED: Acetaminophen 325 MG TAB PO PRN (21:30)
[2022-10-04] MEDS ORDERED: Nitroglycerin 0.4 MG TAB (25 Tab Bottle) SL PRN (21:32)
[2022-10-04] MEDS ORDERED: Melatonin 3 MG TAB PO PRN (21:32)
[2022-10-04] MEDS ORDERED: Aspirin 81 mg Enteric Coated Tablet PO SCH (21:45)
[2022-10-04] MEDS ORDERED: Furosemide 100 MG/10 ML VIAL SLOW IVP SCH (21:45)
[2022-10-04 22:37] VITALS: BMI 37.2
[2022-10-05 04:53] LABS: Anion Gap 12 mmol/L (10-20); BUN (Urea Nitrogen) 47 mg/dL (8.4-25.7); Calc. Creatinine Clearance 48 mL/min (70-130); Calcium 8.8 mg/dL (7.8-10.44); Carbon Dioxide 25 mmol/L (23-31); Chloride 105 mmol/L (98-107); Estimated GFR 27; Glucose 91 mg/dL (80-115); Potassium 4.2 mmol/L (3.5-5.1); Sodium 138 mmol/L (136-145)
[2022-10-05] MEDS ORDERED: Aspirin Chewable 81 MG TAB ONE (07:47)
[2022-10-05] MEDS ORDERED: Clopidogrel Bisulfate 75 MG TAB ONE (07:48)
[2022-10-05] MEDS ORDERED: Furosemide 40 MG/4 ML VIAL ONE (07:48)
[2022-10-05] MEDS ORDERED: hydrALAZINE 25 MG TAB ONE (07:48)
[2022-10-05] MEDS ORDERED: Cholecalciferol 1,000 UNITS (25 MCG) TAB ONE ×2 (07:50→07:53)
[2022-10-05] MEDS ORDERED: Losartan Potassium 50 MG TAB ONE (07:50)
[2022-10-05] MEDS ORDERED: Carvedilol 25 MG TAB ONE (07:50)
[2022-10-05] MEDS ORDERED: Aspirin 81 mg Enteric Coated Tablet PO SCH (08:00)
[2022-10-05] MEDS: Carbidopa/Levodopa 25-100 mg Tablet PO SCH ×2 (08:07→21:08)
[2022-10-05] MEDS: hydrALAZINE 25 MG TAB PO SCH ×3 (08:07→21:07)
[2022-10-05] MEDS: Calcitriol 0.25 MCG CAP PO SCH (08:07)
[2022-10-05] MEDS: Furosemide 40 MG/4 ML VIAL SLOW IVP SCH (08:07)
[2022-10-05] MEDS: Cholecalciferol 1,000 UNITS (25 MCG) TAB PO SCH (08:07)
[2022-10-05] MEDS: Carvedilol 25 MG TAB PO SCH ×2 (08:07→21:07)
[2022-10-05] MEDS: Finasteride 5 MG TAB PO SCH (08:07)
[2022-10-05] MEDS: DULoxetine 30 MG CAP PO SCH ×2 (08:07→21:08)
[2022-10-05] MEDS: Clopidogrel Bisulfate 75 MG TAB PO SCH (08:07)
[2022-10-05] MEDS: Amiodarone 200 MG TAB PO SCH (08:07)
[2022-10-05] MEDS: Ferrous Sulfate 325 MG TAB PO SCH (08:07)
[2022-10-05] MEDS: Losartan Potassium 50 MG TAB PO SCH (08:08)
[2022-10-05] MEDS: Vit A,C & E/Lutein/Minerals Tablet PO SCH ×2 (08:08→21:08)
[2022-10-05] MEDS: Magnesium Oxide 250 MG TAB PO SCH (08:08)
[2022-10-05] MEDS ORDERED: FINERENONE 10 MG PO SCH (09:00)
[2022-10-05] MEDS ORDERED: cloNIDine 0.1 MG TAB PO SCH (21:00)
[2022-10-05] MEDS ORDERED: Atorvastatin Calcium 40 MG TAB PO SCH (21:00)
[2022-10-05] MEDS ORDERED: CO Q-10 CAPSULE 50 MG PO SCH (21:00)
[2022-10-05] MEDS ORDERED: Aripiprazole 10 MG TAB PO SCH (21:00)
[2022-10-06] MEDS: Ferrous Sulfate 325 MG TAB PO SCH (09:01)
[2022-10-06] MEDS: Amiodarone 200 MG TAB PO SCH (09:02)
[2022-10-06] MEDS: Carbidopa/Levodopa 25-100 mg Tablet PO SCH (09:03)
[2022-10-06 09:05] LABS: Anion Gap 14 mmol/L (10-20); BUN (Urea Nitrogen) 43 mg/dL (8.4-25.7); Calc. Creatinine Clearance 46 mL/min (70-130); Calcium 8.5 mg/dL (7.8-10.44); Carbon Dioxide 24 mmol/L (23-31); Chloride 103 mmol/L (98-107); Estimated GFR 26; Glucose 168 mg/dL (80-115); Potassium 4.3 mmol/L (3.5-5.1); Sodium 137 mmol/L (136-145)
[2022-10-06] MEDS: Calcitriol 0.25 MCG CAP PO SCH (09:05)
[2022-10-06] MEDS: Magnesium Oxide 250 MG TAB PO SCH (09:05)
[2022-10-06] MEDS: Cholecalciferol 1,000 UNITS (25 MCG) TAB PO SCH (09:06)
[2022-10-06] MEDS: Carvedilol 25 MG TAB PO SCH (09:06)
[2022-10-06] MEDS: Furosemide 40 MG/4 ML VIAL SLOW IVP SCH ×2 (09:07→09:12)
[2022-10-06] MEDS: Clopidogrel Bisulfate 75 MG TAB PO SCH (09:07)
[2022-10-06] MEDS: DULoxetine 30 MG CAP PO SCH (09:08)
[2022-10-06] MEDS: Finasteride 5 MG TAB PO SCH (09:11)
[2022-10-06] MEDS: hydrALAZINE 25 MG TAB PO SCH (09:13)
[2022-10-06] MEDS: Losartan Potassium 50 MG TAB PO SCH (09:14)
[2022-10-06] MEDS: Vit A,C & E/Lutein/Minerals Tablet PO SCH (09:16)
[2022-10-06 11:53] VITALS: BP 139/65; TEMP 97.8
[2022-10-06] MEDS ORDERED: Furosemide 40 MG TAB PO SCH (12:00)
== END 2022-10-06 12:00 | disposition home or self-care (01) | DRG 291 ==
LOC: CSHERS 19:39 → CSHERHOLD 22:17 → CSHTELE 10-05 13:08
PROVIDERS: ADMIT Student in an Organized Health Care Education/Training Program; ATTEND Internal Medicine
PROC: 5A09357 Assistance with Respiratory Ventilation, Less than 24 Consecutive Hours, Continuous Positive Airway Pressure (ICD-10-PCS; principal; 2022-10-05)
DX: I13.0 Hypertensive heart and chronic kidney disease with heart failure and stage 1 through stage 4 chronic kidney disease, or unspecified chronic kidney disease (principal); I50.33 Acute on chronic diastolic (congestive) heart failure; N18.4 Chronic kidney disease, stage 4 (severe); N40.0 Benign prostatic hyperplasia without lower urinary tract symptoms; E78.5 Hyperlipidemia, unspecified; G47.33 Obstructive sleep apnea (adult) (pediatric); K21.9 Gastro-esophageal reflux disease without esophagitis; E11.22 Type 2 diabetes mellitus with diabetic chronic kidney disease; E66.01 Morbid (severe) obesity due to excess calories; I48.0 Paroxysmal atrial fibrillation; D63.1 Anemia in chronic kidney disease; G20 Parkinson's disease; I25.118 Atherosclerotic heart disease of native coronary artery with other forms of angina pectoris; E78.2 Mixed hyperlipidemia; Z88.2 Allergy status to sulfonamides; Z88.8 Allergy status to other drugs, medicaments and biological substances; Z79.899 Other long term (current) drug therapy; Z79.82 Long term (current) use of aspirin; Z79.4 Long term (current) use of insulin; Z85.51 Personal history of malignant neoplasm of bladder; Z95.5 Presence of coronary angioplasty implant and graft; Z90.49 Acquired absence of other specified parts of digestive tract; Z98.890 Other specified postprocedural states; Z89.421 Acquired absence of other right toe(s); Z68.37 Body mass index [BMI] 37.0-37.9, adult
CPT/HCPCS: 36415; 36416; 71045; 78306; 80048; 80053; 83735; 83880; 84443; 84484; 85025; 93005; 93306; 93970; 94760; A9503; J1650; J1940

== ENCOUNTER 2022-12-10 12:19 | Outpatient (CLI) | payer MEDICARE | END 2022-12-10 12:20 | disposition home or self-care (01) | LOC: CSHRAD 12:19 | PROVIDERS: ATTEND Specialist | DX: R06.02 Shortness of breath (principal); I50.9 Heart failure, unspecified | CPT/HCPCS: 71046 ==

== ENCOUNTER 2023-03-27 10:19 | Emergency (ER) | payer MEDICARE ==
[2023-03-27 10:48] LABS: #Eosinphils 0.2 10x3/uL (0.0-0.5); #Monocytes 0.6 10x3/uL (0.0-1.1); #Neutrophils 2.9 10x3/uL (1.5-8.4); %Basophils 0.8 % (0.0-2.0); %Lymphocytes 24.3 % (18.0-47.0); %Monocytes 11.3 % (0.0-10.0); %Neutrophils 59.6 % (40.0-75.0); Hematocrit 27.6 % (38.8-50.0); Hemoglobin 8.6 g/dL (13.5-17.5); Mean Corpuscular HGB CONC 31.2 g/dL (32.0-36.0); Mean Corpuscular Hemoglobin 24.9 pg (27.0-33.0); Mean Platelet Volume 9.8 fl (7.4-10.4); Platelet Count 164 10x3/uL (150-450); RBC Distribution Width 15.6 % (11.5-14.5); Red Blood Cell (RBC) Count 3.45 10x6/uL (4.32-5.72); White Blood Cell (WBC) Count 4.9 10x3/uL (3.5-10.5)
[2023-03-27 11:10] LABS: ALT (SGPT) 8 U/L (8-55); AST (SGOT) 17 U/L (5-34); Albumin 3.7 g/dL (3.4-4.8); Alkaline Phosphatase 66 U/L (40-110); Anion Gap 15 mmol/L (10-20); BUN (Urea Nitrogen) 55 mg/dL (8.4-25.7); Bilirubin, Total 0.5 mg/dL (0.2-1.2); CK (CPK) 105 U/L (30-200); Calc. Creatinine Clearance 0 mL/min (70-130); Calcium 8.3 mg/dL (7.8-10.44); Carbon Dioxide 20 mmol/L (23-31); Chloride 103 mmol/L (98-107); Estimated GFR 18; Globulin 2.4 g/dL (2.4-3.5); Glucose 109 mg/dL (80-115); Magnesium 2.3 mg/dL (1.6-2.6); Potassium 4.7 mmol/L (3.5-5.1); Protein, Total 6.1 g/dL (5.8-8.1); Sodium 133 mmol/L (136-145)
[2023-03-27 11:11] LABS: Troponin I 0.013 ng/mL (< 0.028)
[2023-03-27] MEDS ORDERED: cefTRIAXone (ROCEPHIN) 1 GM VIAL ONE (11:38)
[2023-03-27] MEDS ORDERED: Azithromycin 500 MG VIAL ONE (11:38)
[2023-03-27 12:27] LABS: SARS-CoV-2 NAA Rapid Test Not Detected (NotDetected)
[2023-03-27 13:22] LABS: Troponin I 0.013 ng/mL (< 0.028)
== END 2023-03-27 15:16 | disposition home or self-care (01) ==
LOC: CSHERS 10:19
DX: J18.9 Pneumonia, unspecified organism (principal); E11.22 Type 2 diabetes mellitus with diabetic chronic kidney disease; I12.9 Hypertensive chronic kidney disease with stage 1 through stage 4 chronic kidney disease, or unspecified chronic kidney disease; N18.4 Chronic kidney disease, stage 4 (severe); K21.9 Gastro-esophageal reflux disease without esophagitis; I25.10 Atherosclerotic heart disease of native coronary artery without angina pectoris
CPT/HCPCS: 0240U; 71045; 80053; 82550; 83735; 83880; 84484 ×2; 85025; 93005; J0456; 36415; 96365; 96375; J0696

== ENCOUNTER 2023-03-29 13:30 | Emergency (ER) | payer MEDICARE ==
[2023-03-29 15:56] LABS: #Eosinphils 0.3 10x3/uL (0.0-0.5); #Monocytes 0.6 10x3/uL (0.0-1.1); #Neutrophils 3.2 10x3/uL (1.5-8.4); %Basophils 0.7 % (0.0-2.0); %Eosinophils 4.8 % (0.0-6.0); %Monocytes 10.4 % (0.0-10.0); %Neutrophils 58.7 % (40.0-75.0); Hematocrit 27.8 % (38.8-50.0); Hemoglobin 8.7 g/dL (13.5-17.5); Mean Corpuscular HGB CONC 31.3 g/dL (32.0-36.0); Mean Corpuscular Hemoglobin 24.9 pg (27.0-33.0); Mean Corpuscular Volume 79.7 fl (81.2-95.1); Mean Platelet Volume 9.5 fl (7.4-10.4); Platelet Count 166 10x3/uL (150-450); RBC Distribution Width 15.8 % (11.5-14.5); Red Blood Cell (RBC) Count 3.49 10x6/uL (4.32-5.72); White Blood Cell (WBC) Count 5.4 10x3/uL (3.5-10.5)
[2023-03-29 15:57] LABS: Bilirubin Neg (Negative); Blood, Urine Negative (Negative); Clarity Clear (Clear); Glucose, Urine (Dipstick) >=1000 mg/dL (Negative); Ketone, Urine Negative (Negative); Leukocyte Negative (Negative); Nitrite Negative (Negative); Protein, Urine (Dipstick) 100 mg/dl (Neg-Trace); Urobilinogen Normal mg/dL (Less than 2)
[2023-03-29 16:13] LABS: ALT (SGPT) 7 U/L (8-55); AST (SGOT) 13 U/L (5-34); Albumin 3.8 g/dL (3.4-4.8); Alkaline Phosphatase 66 U/L (40-110); Anion Gap 13 mmol/L (10-20); BUN (Urea Nitrogen) 54 mg/dL (8.4-25.7); Bilirubin, Total 0.5 mg/dL (0.2-1.2); Calc. Creatinine Clearance 0 mL/min (70-130); Calcium 8.6 mg/dL (7.8-10.44); Carbon Dioxide 22 mmol/L (23-31); Chloride 106 mmol/L (98-107); Estimated GFR 17; Globulin 2.8 g/dL (2.4-3.5); Glucose 155 mg/dL (80-115); Potassium 4.7 mmol/L (3.5-5.1); Protein, Total 6.6 g/dL (5.8-8.1); Sodium 136 mmol/L (136-145)
[2023-03-29 16:21] LABS: Bacteria/HPF None Seen HPF (None Seen); CAUTI Indications for Culture Pelvic or flank pain; RBC/HPF None Seen HPF (0-3); Squamous Epithelial None Seen HPF (0-3); WBC/HPF None Seen HPF (0-3)
[2023-03-29 16:22] LABS: Urine Culture Reflex No No
== END 2023-03-29 18:12 | disposition home or self-care (01) ==
LOC: CSHERS 13:30
DX: J18.9 Pneumonia, unspecified organism (principal); I12.9 Hypertensive chronic kidney disease with stage 1 through stage 4 chronic kidney disease, or unspecified chronic kidney disease; E11.22 Type 2 diabetes mellitus with diabetic chronic kidney disease; N18.4 Chronic kidney disease, stage 4 (severe); I25.10 Atherosclerotic heart disease of native coronary artery without angina pectoris
CPT/HCPCS: 74177; 80053; 81001; 85025; 93005

== ENCOUNTER 2023-11-19 18:25 | Emergency (ER) | payer MEDICARE ==
[2023-11-19 19:41] LABS: #Basophils 0.02 10x3/uL (0.0-0.2); #Monocytes 0.65 10x3/uL (0.0-1.1); #Neutrophils 4.25 10x3/uL (1.5-8.4); %Basophils 0.4 % (0.0-2.0); %Eosinophils 1.8 % (0.0-6.0); %Lymphocytes 10.2 % (18.0-47.0); %Monocytes 11.6 % (0.0-10.0); %Neutrophils 75.6 % (40.0-75.0); Hemoglobin 10.2 g/dL (13.5-17.5); Mean Corpuscular HGB CONC 30.9 g/dL (32.0-36.0); Mean Corpuscular Hemoglobin 25.1 pg (27.0-33.0); Mean Corpuscular Volume 81.1 fL (81.2-95.1); Mean Platelet Volume 9.8 fL (7.4-10.4); Platelet Count 122 10x3/uL (150-450); RBC Distribution Width 16.8 % (11.5-14.5); Red Blood Cell (RBC) Count 4.07 10x6/uL (4.32-5.72); White Blood Cell (WBC) Count 5.6 10x3/uL (3.5-10.5)
[2023-11-19] MEDS ORDERED: Furosemide 40 MG (4 mL) VIAL ONE (19:46)
[2023-11-19] MEDS ORDERED: Nitroglycerin 2% Ointment 1 INCH/1 GM Packet ONE (19:46)
[2023-11-19 19:49] LABS: ALT (SGPT) Less than 7 U/L (8-55); AST (SGOT) 15 U/L (5-34); Albumin 3.9 g/dL (3.4-4.8); Alkaline Phosphatase 100 U/L (40-110); Anion Gap 15 mmol/L (10-20); BUN (Urea Nitrogen) 62 mg/dL (8.4-25.7); Bilirubin, Total 0.8 mg/dL (0.2-1.2); Calc. Creatinine Clearance 0 mL/min (70-130); Calcium 8.9 mg/dL (7.8-10.44); Carbon Dioxide 18 mmol/L (23-31); Chloride 106 mmol/L (98-107); Estimated GFR 20; Globulin 2.7 g/dL (2.4-3.5); Glucose 249 mg/dL (80-115); Potassium 4.7 mmol/L (3.5-5.1); Protein, Total 6.6 g/dL (5.8-8.1); Sodium 134 mmol/L (136-145)
[2023-11-19 19:52] LABS: Troponin I 0.021 ng/mL (< 0.028)
[2023-11-19] MEDS ORDERED: Aspirin Chewable 81 MG TAB ONE (20:20)
[2023-11-19 20:31] LABS: SARS-CoV-2 E Target Negative; SARS-CoV-2 N2 Target Negative; SARS-CoV-2 NAA Rapid Test Not Detected (NotDetected); SARS-CoV-2 RdRP gene Negative
== END 2023-11-19 22:36 | disposition short-term general hospital (02) ==
LOC: CSHERS 18:25
DX: E87.70 Fluid overload, unspecified (principal); I12.9 Hypertensive chronic kidney disease with stage 1 through stage 4 chronic kidney disease, or unspecified chronic kidney disease; N18.4 Chronic kidney disease, stage 4 (severe); E11.22 Type 2 diabetes mellitus with diabetic chronic kidney disease
CPT/HCPCS: 71045; 80053; 83880; 84484; 85025; 93005; J1940; U0002; 36415

== ENCOUNTER 2024-12-01 13:15 | Outpatient (CLI) | payer MEDICARE | END 2024-12-01 13:16 | disposition home or self-care (01) | LOC: CSHCT 13:15 | PROVIDERS: ATTEND Urology | DX: C67.1 Malignant neoplasm of dome of bladder (principal); N18.32 Chronic kidney disease, stage 3b; N52.01 Erectile dysfunction due to arterial insufficiency; N40.1 Benign prostatic hyperplasia with lower urinary tract symptoms; N52.9 Male erectile dysfunction, unspecified; Z12.5 Encounter for screening for malignant neoplasm of prostate; N28.9 Disorder of kidney and ureter, unspecified; J90 Pleural effusion, not elsewhere classified; K44.9 Diaphragmatic hernia without obstruction or gangrene; Z98.890 Other specified postprocedural states | CPT/HCPCS: 74176 ==

== ENCOUNTER 2025-03-27 13:47 | Emergency (ER) | payer MEDICARE ==
[2025-03-27 15:09] LABS: #Basophils 0.03 10x3/uL (0.0-0.2); #Eosinophils 0.10 10x3/uL (0.0-0.5); #Monocytes 0.62 10x3/uL (0.0-1.1); #Neutrophils 5.01 10x3/uL (1.5-8.4); %Basophils 0.5 % (0.0-2.0); %Eosinophils 1.5 % (0.0-6.0); %Lymphocytes 12.8 % (18.0-47.0); %Monocytes 9.4 % (0.0-10.0); %Neutrophils 75.5 % (40.0-75.0); Hematocrit 28.0 % (38.8-50.0); Hemoglobin 9.4 g/dL (13.5-17.5); Mean Corpuscular Hemoglobin 26.0 pg (27.0-33.0); Mean Corpuscular Volume 77.6 fL (81.2-95.1); Platelet Count 214 10x3/uL (150-450); Red Blood Cell (RBC) Count 3.61 10x6/uL (4.32-5.72); White Blood Cell (WBC) Count 6.63 10x3/uL (3.5-10.5)
[2025-03-27 15:23] LABS: ALT (SGPT) Less than 7 U/L (Less than 45); AST (SGOT) 14 U/L (11-34); Albumin 2.9 g/dL (3.1-4.5); Alkaline Phosphatase 131 U/L (40-110); Anion Gap 16 mmol/L (10-20); BUN (Urea Nitrogen) 57 mg/dL (8.4-25.7); Bilirubin, Total 0.5 mg/dL (0.3-1.2); Calc. Creatinine Clearance 0 mL/min (70-130); Calcium 8.0 mg/dL (7.8-10.44); Carbon Dioxide 22 mmol/L (23-31); Chloride 92 mmol/L (98-107); Globulin 3.1 g/dL (2.4-3.5); Glucose 152 mg/dL (80-115); Magnesium 2.7 mg/dL (1.6-2.6); Potassium 3.1 mmol/L (3.5-5.1); Sodium 127 mmol/L (136-145)
== END 2025-03-27 18:10 | disposition home or self-care (01) ==
LOC: CSHERS 13:47
DX: E87.6 Hypokalemia (principal); R42 Dizziness and giddiness; E11.22 Type 2 diabetes mellitus with diabetic chronic kidney disease; I12.9 Hypertensive chronic kidney disease with stage 1 through stage 4 chronic kidney disease, or unspecified chronic kidney disease; N18.4 Chronic kidney disease, stage 4 (severe); I25.10 Atherosclerotic heart disease of native coronary artery without angina pectoris; Z55.6 Problems related to health literacy
CPT/HCPCS: 80053; 83735; 85025; 99284